=== PATIENT | female | born 1935 | race Caucasian/White ===

== ENCOUNTER 2023-07-12 14:11 | Emergency (ER) | payer MEDICARE, SELFPAY ==
[2023-07-12 14:18] VITALS: BP 141/89; PULSE 71; RESP 20; TEMP 36.6; O2SAT 97; BMI 21.6
[2023-07-12 14:37] LABS: Bilirubin Urine NEGATIVE (NEGATIVE); Blood Urine NEGATIVE (NEGATIVE); Clarity Urine CLEAR (CLEAR); Color Urine LT. YELLOW (YELLOW); Glucose Urine UA NEGATIVE (NEGATIVE); Ketones Urine NEGATIVE (NEGATIVE); Leukocyte Esterase Urine SMALL (NEGATIVE); Nitrite Urine NEGATIVE (NEGATIVE); Protein Urine NEGATIVE (NEG/TRACE)
[2023-07-12 14:47] LABS: Bacteria Urine TRACE #/HPF (NONE SEEN); Cast Seen? NONE SEEN #/LPF (NONE SEEN); Crystals Seen? None Seen #/HPF (None Seen); Mucus Urine TRACE (NONE SEEN); RBC Urine 0-2 #/HPF (0-2); Squamous Epithelial Cell Urine FEW #/LPF (NONE/RARE)
--- NOTE | 2023-07-12 15:19 | ED.FEMALEGU1 ---
Documented by User: LLUVIA Salazar 07/12/23 19:32 HPI - Female Genitourinary General Chief complaint: Urogenital-Female Stated complaint: UTI SYMPTOMS Time Seen by Provider: 07/12/23 14:19 Source: patient Mode of arrival: walk-in Limitations: no limitations History of Present Illness HPI Narrative: 88-year-old female presents for brown vaginal discharge that started 3 days ago. She states that she still has uterus and 1 ovary. She has a history of 2 C-sections. She has not been sexually active in a couple of years as she states that her has . She complains of urinary frequency. Daughter is with her who states that she did smell the discharge and a small black stool. She states that the discharge is also on her underwear. Denies bright red blood. Denies history of cancer. Denies fever, abd or back pain, dysuria, n/v/d Related Data Allergies Allergy/AdvReac Type Severity Reaction Status Date / Time theophylline Allergy Severe Difficulty Verified 07/12/23 14:18 Breathing Review of Systems ROS Status of ROS 10 or more systems reviewed and unremarkable except as noted in history and below [facility] Social History Smoking status: Former smoker Exam Narrative Exam Narrative: General: alert, no distress, talking in full an complete sentences skin: warm, dry, intact head: normocephalic, atraumatic eyes: EOMI nose: nares patent neck: supple, trachea midline respiratory: non-labored extremities: FROM x 4, strength +5/5 abd: soft, NT, no guarding or rigidity, no peritoneal signs, normal BS female: Digital exam performed per myself and Dr. Cr with no evidence of discharge, no CMT, normal external genitalia; jade HAYS at bedside as witness neuro: A&Ox3 psych: appropriate mood and affect, cooperative Constitutional Vital Signs, click to edit/add: Last Vital Signs Temp 97.6 F 07/12/23 19:31 Pulse 80 07/12/23 19:31 Resp 14 07/12/23 19:31 BP 169/94 H 07/12/23 19:31 Pulse Ox 98 07/12/23 19:31 O2 Del Method Room Air 07/12/23 19:31 Course Vital Signs Vital signs: Vital Signs Temperature 97.9 F 07/12/23 14:18 Pulse Rate 71 07/12/23 14:18 Respiratory Rate 20 07/12/23 14:18 Blood Pressure 141/89 07/12/23 14:18 Pulse Oximetry 97 07/12/23 14:18 Oxygen Delivery Method Room Air 07/12/23 14:18 Temperature 97.6 F 07/12/23 19:31 Pulse Rate 80 07/12/23 19:31 Respiratory Rate 14 07/12/23 19:31 Blood Pressure 169/94 H 07/12/23 19:31 Pulse Oximetry 98 07/12/23 19:31 Oxygen Delivery Method Room Air 07/12/23 19:31 MDM - Female Genitourinary MDM Narrative Medical decision making narrative: 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 Dr. Villela's office was consulted and discussed the case with Chaparrita Gomez PA-C and will obtain blood work and CT and pelvis with contrast. UA positive for leukocytes, WBCs, bacteria. No acute findings on final read of CT abdomen pelvis with contrast, but it does mention thickened endometrium and recommends pelvic ultrasound. Patient is getting upset and states that she wants to be discharged home and called with her ultrasound results. She is given Dr. Villela's contact and to call them tomorrow to set up an appointment. afebrile, not tachypneic, not tachycardic, tolerating p.o., not hypoxic, non toxic appearing and ambulating at baseline and hemodynamically stable to be d/c. answered all questions. pt in agreement with tx. educated when to return to ER. Lab Data Attestation: I reviewed the patient's lab results. Labs: Lab Results 07/12/23 07/12/23 Range/Units 14:00 14:28 WBC 6.4 (4.0-11.0) 10^3/uL RBC 4.25 (4.20-5.40) 10^6/uL Hgb 12.1 (12.0-16.0) g/dL Hct 37.3 (36.0-48.0) % MCV 87.8 (81.0-99.0) fL MCH 28.5 (26.7-34.0) pg MCHC 32.4 (29.9-35.2) g/dL RDW 13.3 (11.0-15.0) % Plt Count 248 (150-450) 10^3/uL MPV 8.6 L (9.5-13.5) fL Neut % (Auto) 52.1 (43.0-75.0) % Lymph % (Auto) 31.8 (20.5-60.0) % [place] % (Auto) 11.1 (1.7-12.0) % Eos % (Auto) 3.7 (0.9-7.0) % Baso % (Auto) 1.1 (0.2-2.0) % Neut # (Auto) 3.4 (1.4-6.5) 10^3/uL Lymph # (Auto) 2.0 (1.2-3.8) 10^3/uL [place] # (Auto) 0.7 (0.3-0.8) 10^3/uL Eos # (Auto) 0.2 (0.0-0.7) 10^3/uL Baso # (Auto) 0.1 (0.0-0.1) 10^3/uL Abs Immat Gran (auto) 0.01 (0.00-0.03) 10^3/uL Imm/Tot Granulo (auto) 0.2 (0.0-0.5) % Sodium 140 (136-145) mmol/L Potassium 4.1 (3.5-5.1) mmol/L Chloride 104 (98-107) mmol/L Carbon Dioxide 29.7 (21.0-32.0) mmol/L Anion Gap 10.4 BUN 20.0 H (7.0-18.0) mg/dL Creatinine 0.70 (0.55-1.02) mg/dL Est GFR ( Amer) >60 (>=60) Est GFR (Non-Af Amer) >60 (>=60) BUN/Creatinine Ratio 28.6 Glucose 78 (74-106) mg/dL Calcium 8.8 (8.5-10.1) mg/dL Total Bilirubin 0.5 (0.2-1.0) mg/dL AST 14 L (15-37) U/L ALT 19 (14-59) U/L Alkaline Phosphatase 66 (46-116) U/L Total Protein 6.9 (6.4-8.2) g/dL Albumin 3.4 (3.4-5.0) g/dL Globulin 3.5 g/dL Albumin/Globulin Ratio 1.0 Urine Color Lt. yellow (YELLOW) Urine Clarity Clear (CLEAR) Urine pH 6.0 (5.0-9.0) Ur Specific [place] 1.020 (1.005-1.025) Urine Protein Negative (NEG/TRACE) mg/dL Urine Glucose (UA) Negative (NEGATIVE) mg/dL Urine Ketones Negative (NEGATIVE) mg/dL Urine Occult Blood Negative (NEGATIVE) Urine Nitrite Negative (NEGATIVE) Urine Bilirubin Negative (NEGATIVE) Urine Urobilinogen 1.0 (0.2-1.0) EU/dL Ur Leukocyte Esterase Small A (NEGATIVE) Urine RBC 0-2 (0-2) #/HPF Urine WBC 2-5 A (NONE SEEN) #/HPF Ur Squamous Epith Cells Few A (NONE/RARE) #/LPF Urine Crystals None seen (None Seen) #/HPF Urine Bacteria Trace A (NONE SEEN) #/HPF Urine Casts None seen (NONE SEEN) #/LPF Urine Mucus Trace A (NONE SEEN) Imaging Data CT scan - abdomen: Attestation: I have reviewed the pertinent imaging results. Radiologist's impression: CT/CT abdomen pelvis w con IMPRESSION: 1. No acute intra-abdominal/pelvic findings. 2. Significant endometrial thickening. Recommend further evaluation with pelvic ultrasound. Discharge Plan Discharge Chief Complaint: Urogenital-Female Clinical Impression: Discharge of vagina Patient Disposition: Home, Self-Care Time of Disposition Decision: 19:31 Condition: Good Mode of Transportation: Private Vehicle Instructions: Vaginal Discharge (ED) Stand Alone Forms: Portal Instructions Referrals: Jeffrey Villela DO [Physician] - As soon as possible Physician,Non-Staff, [Primary Care Provider] - 1 week Documented by User: Cedrick Cr MD 07/12/23 19:35 HPI - Female Genitourinary General Chief complaint: Urogenital-Female Stated complaint: UTI SYMPTOMS Time Seen by Provider: 07/12/23 14:19 Related Data Allergies Allergy/AdvReac Type Severity Reaction Status Date / Time theophylline Allergy Severe Difficulty Verified 07/12/23 14:18 Breathing PFSH PFSH Social History Smoking status: Former smoker Exam Narrative Exam Narrative: General: alert, no distress, talking in full an complete sentences skin: warm, dry, intact head: normocephalic, atraumatic eyes: EOMI nose: nares patent neck: supple, trachea midline respiratory: non-labored extremities: FROM x 4, strength +5/5 abd: soft, NT, no guarding or rigidity, no peritoneal signs, normal BS female: Digital exam performed per myself Marina Segal and Dr. Cr with no evidence of discharge, stool, Cervix was not palpated by either genital or Dr. Cr. no CMT, normal external genitalia; jade RN at bedside as witness During the entire exam as well as daughter. Marina and Dr. Cr were at bedside the entire time as well. neuro: A&Ox3 psych: appropriate mood and affect, cooperative Constitutional Vital Signs, click to edit/add: Last Vital Signs Temp 97.6 F 07/12/23 19:31 Pulse 80 07/12/23 19:31 Resp 14 07/12/23 19:31 BP 169/94 H 07/12/23 19:31 Pulse Ox 98 07/12/23 19:31 O2 Del Method Room Air 07/12/23 19:31 Course Vital Signs Vital signs: Vital Signs Temperature 97.9 F 07/12/23 14:18 Pulse Rate 71 07/12/23 14:18 Respiratory Rate 20 07/12/23 14:18 Blood Pressure 141/89 07/12/23 14:18 Pulse Oximetry 97 07/12/23 14:18 Oxygen Delivery Method Room Air 07/12/23 14:18 Temperature 97.6 F 07/12/23 19:31 Pulse Rate 80 07/12/23 19:31 Respiratory Rate 14 07/12/23 19:31 Blood Pressure 169/94 H 07/12/23 19:31 Pulse Oximetry 98 07/12/23 19:31 Oxygen Delivery Method Room Air 07/12/23 19:31 MDM - Female Genitourinary MDM Narrative Medical decision making narrative: 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 Dr. Villela's office was consulted and discussed the case with Chaparrita Gomez PA-C and will obtain blood work and CT and pelvis with contrast. UA positive for leukocytes, WBCs, bacteria. No acute findings on final read of CT abdomen pelvis with contrast, but it does mention thickened endometrium and recommends pelvic ultrasound. Patient is getting upset and states that she wants to be discharged home and called with her ultrasound results. She is given Dr. Villela's contact and to call them tomorrow to set up an appointment. afebrile, not tachypneic, not tachycardic, tolerating p.o., not hypoxic, non toxic appearing and ambulating at baseline and hemodynamically stable to be d/c. answered all questions. pt in agreement with tx. educated when to return to ER. I, Dr Cr, have reviewed the above progress note and course of action in the ER; agree with the above. I have personally seen and evaluated this patient, gone over history and physical, and discussed disposition and treatment plan with the patient. Lab Data Labs: Lab Results 07/12/23 07/12/23 Range/Units 14:00 14:28 WBC 6.4 (4.0-11.0) 10^3/uL RBC 4.25 (4.20-5.40) 10^6/uL Hgb 12.1 (12.0-16.0) g/dL Hct 37.3 (36.0-48.0) % MCV 87.8 (81.0-99.0) fL MCH 28.5 (26.7-34.0) pg MCHC 32.4 (29.9-35.2) g/dL RDW 13.3 (11.0-15.0) % Plt Count 248 (150-450) 10^3/uL MPV 8.6 L (9.5-13.5) fL Neut % (Auto) 52.1 (43.0-75.0) % Lymph % (Auto) 31.8 (20.5-60.0) % [place] % (Auto) 11.1 (1.7-12.0) % Eos % (Auto) 3.7 (0.9-7.0) % Baso % (Auto) 1.1 (0.2-2.0) % Neut # (Auto) 3.4 (1.4-6.5) 10^3/uL Lymph # (Auto) 2.0 (1.2-3.8) 10^3/uL [place] # (Auto) 0.7 (0.3-0.8) 10^3/uL Eos # (Auto) 0.2 (0.0-0.7) 10^3/uL Baso # (Auto) 0.1 (0.0-0.1) 10^3/uL Abs Immat Gran (auto) 0.01 (0.00-0.03) 10^3/uL Imm/Tot Granulo (auto) 0.2 (0.0-0.5) % Sodium 140 (136-145) mmol/L Potassium 4.1 (3.5-5.1) mmol/L Chloride 104 (98-107) mmol/L Carbon Dioxide 29.7 (21.0-32.0) mmol/L Anion Gap 10.4 BUN 20.0 H (7.0-18.0) mg/dL Creatinine 0.70 (0.55-1.02) mg/dL Est GFR ( Amer) >60 (>=60) Est GFR (Non-Af Amer) >60 (>=60) BUN/Creatinine Ratio 28.6 Glucose 78 (74-106) mg/dL Calcium 8.8 (8.5-10.1) mg/dL Total Bilirubin 0.5 (0.2-1.0) mg/dL AST 14 L (15-37) U/L ALT 19 (14-59) U/L Alkaline Phosphatase 66 (46-116) U/L Total Protein 6.9 (6.4-8.2) g/dL Albumin 3.4 (3.4-5.0) g/dL Globulin 3.5 g/dL Albumin/Globulin Ratio 1.0 Urine Color Lt. yellow (YELLOW) Urine Clarity Clear (CLEAR) Urine pH 6.0 (5.0-9.0) Ur Specific [place] 1.020 (1.005-1.025) Urine Protein Negative (NEG/TRACE) mg/dL Urine Glucose (UA) Negative (NEGATIVE) mg/dL Urine Ketones Negative (NEGATIVE) mg/dL Urine Occult Blood Negative (NEGATIVE) Urine Nitrite Negative (NEGATIVE) Urine Bilirubin Negative (NEGATIVE) Urine Urobilinogen 1.0 (0.2-1.0) EU/dL Ur Leukocyte Esterase Small A (NEGATIVE) Urine RBC 0-2 (0-2) #/HPF Urine WBC 2-5 A (NONE SEEN) #/HPF Ur Squamous Epith Cells Few A (NONE/RARE) #/LPF Urine Crystals None seen (None Seen) #/HPF Urine Bacteria Trace A (NONE SEEN) #/HPF Urine Casts None seen (NONE SEEN) #/LPF Urine Mucus Trace A (NONE SEEN) Discharge Plan Discharge Chief Complaint: Urogenital-Female Clinical Impression: Discharge of vagina Patient Disposition: Home, Self-Care Time of Disposition Decision: 19:31 Condition: Good Mode of Transportation: Private Vehicle Instructions: Vaginal Discharge (ED) Stand Alone Forms: Portal Instructions Referrals: Jeffrey Villela DO [Physician] - As soon as possible Physician,Non-Staff, MD [Primary Care Provider] - 1 week
--- NOTE | 2023-07-12 15:43 | CT_ITS ---
[address] [address] Patient Name: TRINY FERRARI MRN: [id number] date: 1935 Sex: F Assigned Patient Location: ER Current Patient Location: ER Accession/Order Number: [id number] Exam Date: 07/12/2023 16:40 Report Date: 07/12/2023 18:08 At the request of: NATASHA BLACKWOOD Procedure: CT abdomen pelvis w con EXAM: CT abdomen pelvis w con HISTORY: pain COMPARISON: 05/11/2018. 07/02/2020 TECHNIQUE: CT of abdomen/pelvis with IV contrast. Dose reduction techniques were performed. FINDINGS: Honing Machine Set Up Operator Tool: No pertinent findings, which are not already discussed below. Tubes/lines/drains: None. CHEST: Lungs: Clear. Mediastinum: No cardiomegaly or significant pericardial effusion. ABDOMEN: Liver: Unremarkable. Gallbladder and Biliary Tree: Unremarkable. Spleen: Calcified granuloma. Pancreas: Prominent main pancreatic duct although technically not dilated. No discrete mass or atrophy. Adrenal Glands: Unremarkable. Kidneys, Ureters, Bladder: Subserosal left lower pole cortical hypodensity, likely benign cyst. No concerning renal lesions. No urolithiasis. No hydronephrosis or hydroureterosis. Unremarkable bladder. Gastrointestinal: Second portion duodenal diverticulum. Advanced diffuse colonic diverticulosis. No mural thickening or inflammatory changes. No dilated loops of small or large bowel. Normal appendix. No free fluid or free air. Reproductive organ(s): Significant endometrial thickening measuring 2.2 cm, increased from previous. Lymphatic: Unremarkable. Vessels: Advanced atherosclerosis. BONES AND SOFT TISSUE: Bones: No acute fracture. No concerning osseous lesions. Soft Tissue: Within normal limits. CT/CT abdomen pelvis w con IMPRESSION: 1. No acute intra-abdominal/pelvic findings. 2. Significant endometrial thickening. Recommend further evaluation with pelvic ultrasound. Electronically authenticated by: MURTAZA RAYA Date: 07/12/2023 18:08
--- NOTE | 2023-07-12 15:51 | PC.NURSE ---
Pt reports a thick brown vaginal discharge yesterday that per her daughter, smelled like stool. Pt states she has hardly any sense of smell. Dr Cr and LLUVIA Gray to bedside and did a digital exploration of vaginal canal but did not observe any discharge . Dr Tika griffith for consultation
[2023-07-12 16:07] LABS: Basophils Absolute Auto 0.1 10^3/uL (0.0-0.1); Basophils Percent Auto 1.1 % (0.2-2.0); Eosinophils Absolute Auto 0.2 10^3/uL (0.0-0.7); Eosinophils Percent Auto 3.7 % (0.9-7.0); Hematocrit 37.3 % (36.0-48.0); Hemoglobin 12.1 g/dL (12.0-16.0); Immature Granulocytes Abs Auto 0.01 10^3/uL (0.00-0.03); Immature Granulocytes Pct Auto 0.2 % (0.0-0.5); Lymphocytes Percent Auto 31.8 % (20.5-60.0); Mean Corpuscular HGB Conc 32.4 g/dL (29.9-35.2); Mean Corpuscular Hemoglobin 28.5 pg (26.7-34.0); Mean Corpuscular Volume 87.8 fL (81.0-99.0); Mean Platelet Volume 8.6 fL (9.5-13.5); Monocytes Absolute Auto 0.7 10^3/uL (0.3-0.8); Monocytes Percent Auto 11.1 % (1.7-12.0); Neutrophils Absolute Auto 3.4 10^3/uL (1.4-6.5); Neutrophils Percent Auto 52.1 % (43.0-75.0); Platelet Count 248 10^3/uL (150-450); Red Blood Count 4.25 10^6/uL (4.20-5.40); Red Cell Distribution Width 13.3 % (11.0-15.0); White Blood Count 6.4 10^3/uL (4.0-11.0)
[2023-07-12 16:26] LABS: Alanine Aminotransferase 19 U/L (14-59); Albumin Level 3.4 g/dL (3.4-5.0); Alkaline Phosphatase 66 U/L (46-116); Anion Gap 10.4; Aspartate Amino Transferase 14 U/L (15-37); BUN Creatinine Ratio 28.6; Bilirubin Total 0.5 mg/dL (0.2-1.0); Calcium 8.8 mg/dL (8.5-10.1); Carbon Dioxide 29.7 mmol/L (21.0-32.0); Chloride 104 mmol/L (98-107); Estimated GFR (African America >60 (>=60); Estimated GFR (Non-African Ame >60 (>=60); Globulin 3.5 g/dL; Glucose 78 mg/dL (74-106); Potassium 4.1 mmol/L (3.5-5.1); Sodium 140 mmol/L (136-145); Total Protein 6.9 g/dL (6.4-8.2)
--- NOTE | 2023-07-12 18:28 | US_ITS ---
The [address] [address] Patient Name: TRINY FERRARI MRN: [id number] date: 1935 Sex: F Assigned Patient Location: ER Current Patient Location: Accession/Order Number: [id number] Exam Date: 07/12/2023 18:30 Report Date: 07/12/2023 21:26 At the request of: NATASHA BLACKWOOD Procedure: US pelvis Delete that US pelvis HISTORY: abd CT, vaginal bleeding COMPARISONS: CT abdomen and pelvis from the same day. TECHNIQUE: Transabdominal imaging the pelvis was performed. FINDINGS: UTERUS: Normal in size and echogenicity. The uterus measures 6.4 x 2.8 x 2.7 cm. MYOMETRIUM:Unremarkable. ENDOMETRIUM: The endometrium is abnormally thickened measuring 1.5 cm. The endometrium is not optimally evaluated on this transabdominal scan. RIGHT OVARY: Not visualized. LEFT OVARY: Not visualized. OTHER:There is no significant free fluid in the pelvis. US/US pelvis IMPRESSION: The endometrium is abnormally thickened measuring 1.5 cm. Endometrium is not optimally evaluated on transabdominal scanning. Transvaginal imaging would be of benefit to better characterize the endometrial canal. Electronically authenticated by: DAVINA BRAVO Date: 07/12/2023 21:26
[2023-07-12 19:31] VITALS: BP 169/94; PULSE 80; RESP 14; TEMP 36.4; O2SAT 98
[2023-07-12 19:33] VITALS: BP 165/84; PULSE 82; RESP 16; TEMP 36.4; O2SAT 98
== END 2023-07-12 19:43 | disposition home or self-care (01) ==
PROVIDERS: Physician Assistant; Emergency Provider Emergency Medicine; Family Provider Family Medicine
DX: N89.8 Other specified noninflammatory disorders of vagina (principal); Z87.891 Personal history of nicotine dependence; R93.89 Abnormal findings on diagnostic imaging of other specified body structures
CPT/HCPCS: 36415; 74177; 76856; 80053; 81001; 85025; 99285; Q9967

== ENCOUNTER 2023-07-20 08:50 | Outpatient (OUT) | payer MEDICARE, SELFPAY ==
--- NOTE | 2023-07-20 08:51 | US_ITS ---
The [address] [address] Patient Name: TRINY FERRARI MRN: [id number] date: 1935 Sex: F Assigned Patient Location: US Current Patient Location: US Accession/Order Number: [id number] Exam Date: 07/20/2023 08:51 Report Date: 07/20/2023 10:34 At the request of: JAY LANDIN Procedure: US pelvis transvaginal EXAMINATION: US pelvis transvaginal HISTORY: THICKENED ENDOMETRIUM COMPARISON: 07/12/[address] exam FINDINGS: The uterus is normal in size, contour and echotexture, retroverted, retroflexed. Uterus measures 6.8 x 3.6 x 5.0 cm. No focal myometrial mass The endometrium is heterogeneous in echotexture and thickened measuring 1.7 cm The ovaries are not visualized No free fluid. US/US pelvis transvaginal IMPRESSION: Thickened heterogeneous endometrium for a postmenopausal patient. Histopathologic diagnosis is recommended Electronically authenticated by: QUINTEN KOWALSKI Date: 07/20/2023 10:34
== END 2023-07-20 08:51 | disposition home or self-care (01) ==
LOC: US 08:50
PROVIDERS: Family Provider Family Medicine; Visit Provider Obstetrics & Gynecology
DX: R93.89 Abnormal findings on diagnostic imaging of other specified body structures (principal)
CPT/HCPCS: 76830

== ENCOUNTER 2024-01-17 07:31 | Outpatient (OUT) | payer MEDICARE, SELFPAY ==
--- NOTE | 2024-01-17 | PCN_ITS ---
CARDIAC STRESS TEST Requesting Physician: Procedure Date: 01/17/2024 INDICATION: Dyspnea on exertion, preoperative evaluation. STRESS TEST INFORMATION: The patient was brought to the stress lab in the resting and fasting state. He was connected to the appropriate hemodynamic and electrocardiographic monitoring. Lexiscan 0.4 mg was infused intravenously. He was monitored for the standard duration and discharged in a stable state. 30.8 mCi of 99 Technetium Cardiolite was administered post stress. 9.5 mCi of 99 Technetium Cardiolite were administered prior to rest images. HEMODYNAMICS: Resting heart rate was 73 beats per minute, increasing to a maximum of 90 beats per minute. Resting blood pressure was 144/80, with a maximum of 168/86. The patient experienced chest discomfort after injection of Lexiscan that resolved within 2 minutes. ELECTROCARDIOGRAPHY: Rest EKG: Sinus rhythm, 69 beats per minute, inferolateral ST-T wave changes potentially related to left ventricular hypertrophy and re-polarization versus ischemia. Abnormal resting EKG. During infusion and recovery: No significant arrhythmias are seen. No significant ST-T wave changes are noted. FINAL IMPRESSIONS: 1. No EKG changes seen on Lexiscan Cardiolite stress test in a patient with an abnormal resting EKG 2. Nuclear images are to be read, interpreted, and reported in a separate dictation. TIERRA
--- NOTE | 2024-01-17 07:35 | NM_ITS ---
Patient Name: TRINY FERRARI MR#: [id number] : 1935 Exam Date: 01/17/2024 Ordering Doctor: DARREN VANG CNP RADIOLOGY REPORT PROCEDURE: NM JAZ PERF SPECT REST STR COMPARISON: None. INDICATIONS: DYSPNEA ON EXERTION, PRE-OP EVALUATION TECHNIQUE: Exam Description: Stress/Rest one day protocol gated SPECT Rest Imagin.5 mCi Tc-99m Cardiolite IV on 01/17/2024 Stress Imaging 30.8 mCi Tc-99m Cardiolite IV on 01/17/2024 Exercise Protocol: 0.4 mg Lexiscan given IV Heart Rate (bpm): Rest: 73 Max: 93 PMHR: 69 Blood Pressure: Rest: 144/80 Max: 168/86 Symptoms: chest pain Rest and peak stress ECG findings were normal and the exercise portion of the study was normal per attending physician Dr. Pittman . For more details please see separate cardiac stress test report. FINDINGS: QUALITY OF STUDY: Excellent. PERFUSION DEFECT: None. LOCATION: N/A SIZE: N/A. SEVERITY: N/A. TYPE: N/A. WALL MOTION: Normal. LV SIZE: Normal. 35 mL. TID / TCD: None; 1.2 LVEF: Normal. Calculated EF 93%. SUMMARY: Myocardial perfusion imaging study is NORMAL. CONCLUSION: 1. Normal nuclear medicine myocardial perfusion scan. Dictated by: Lencho Hilton M.D. on 01/18/2024 at 15:58 Approved by: Lencho Hilton M.D. on 01/18/2024 at 15:59
--- OUTSIDE RECORDS SUMMARY | 2024-01-17 07:55 | XMS_ITS | CCD ---
Author Organization [facility] Care Team Providers Care City Letter Carrier Name Role Phone DR ELVER TURNER Consulting Unavailable FABY, DR KULDIP Mcclellan Primary Care Unavailable SHAIKH HUBBARD Attending Unavailable SHAIKH HUBBARD Admitting Unavailable TATIANA, DR SRIKANTH Parada Consulting Unavailable NICKOLAS ANDERSEN, DR FANI Wilson Consulting Unavaillucas SHOOK, DR GUTIERREZ Consulting Unavailable ANNALISA RICHARDSON Consulting Unavailable AHALEX SOMMER Consulting Unavailable RICHSIMON Estrella Consulting Unavailable Angelica Sorenson Consulting Unavailable SHAIKH HUBBARD Consulting Unavailable FABY, DR KULDIP Mcclellan Consulting Unavailable NICKOLAS ANDERSEN, DR FANI Wilson Attending Stacy SWEET, DR KULDIP Mcclellan Primary Care Unavailable NICKOLAS ANDERSEN, DR FANI Wilson Admitting Unavaillucas SIMPSON, DR SRIKANTH Parada Consulting Unavailable NICKOLAS ANDERSEN, DR FANI Wilson Consulting UnavailDARREN Aguilar Attending Unavailable Kuldip Sweet DO Primary Care Provider Allergies Allergy Classification Reported Allergen(s) Allergy Type Date of Onset Reaction(s) Facility Theophylline (1 source) Theophylline Drug Allergy 02-16-2014 [facility] Repository (3 sources) Theophylline; Translations: [THEOPHYLLINE] Drug Allergy 09-09-2022 [facility] Repository (2 sources) HYLAN G-F 20 Drug Allergy 11-03-2022 [facility] Medications Current Medications Medication Drug Class(es) Dates Sig (Normalized) Sig (Original) acetaminophen 325 mg oral capsule (2 sources) take 1 capsule by mouth every six hours as needed acetaminophen (TylenoL) 325 mg capsule 1 capsule as needed Orally every 6 hrs 0 Active [id number] 200 actuat albuterol 0.09 mg/actuat metered dose inhaler (4 sources) beta2-Adrenergic Agonist Start: 06-15-2023 End: 12-06-2023 take 2 puff(s) by mouth every four hours albuterol (PROVENTIL HFA;VENTOLIN HFA) 90 mcg/actuation inhaler Indications: Moderate asthma without complication, unspecified whether persistent inhale 2 puffs by mouth every 4 hours if needed 18 g 0 12/06/2023 Active carvedilol 12.5 mg oral tablet (2 sources) alpha-Adrenergic Natalie, beta-Adrenergic Natalie Start: 06-15-2023 take 1 tablet by mouth twice daily carvediloL (COREG) 12.5 mg tablet Indications: Essential hypertension take 1 tablet by mouth twice a day 180 tablet 1 06/15/2023 Active 30 actuat fluticasone furoate 0.1 mg/actuat / umeclidinium 0.0625 mg/actuat / vilanterol 0.025 mg/actuat dry powder inhaler (2 sources) Anticholinergic, Corticosteroid, beta2-Adrenergic Agonist Start: 08-03-2023 take 1 puff(s) by inhalation once daily fluticasone-umeclid in-vilanter (TRELEGY ELLIPTA) 100-62.5-25 mcg blister with device Indications: Moderate asthma without complication, unspecified whether persistent Inhale 1 puff once daily. 1 each 5 08/03/2023 Active moexipril hydrochloride 15 mg oral tablet (2 sources) Start: 06-15-2023 take 1 tablet by mouth once daily moexipriL (UNIVASC) 15 mg tablet Indications: Essential hypertension take 1 tablet by mouth once daily 90 tablet 1 06/15/2023 Active montelukast 10 mg oral tablet (2 sources) Leukotriene Receptor Antagonist Start: 06-15-2023 take 1 tablet by mouth once daily montelukast (SINGULAIR) 10 mg tablet Indications: Moderate asthma without complication, unspecified whether persistent take 1 tablet by mouth once daily 90 tablet 2 06/15/2023 Active naproxen sodium 220 mg oral tablet (2 sources) Nonsteroidal Anti-inflammatory Drug take 1 tablet by mouth every twelve hours at mealtime as needed naproxen sodium (ALEVE) 220 mg tablet 1 tablet with food or milk as needed Orally every 12 hrs 0 Active Problems Active Problems Problem Classification Problem Date Documented Date Episodic/Chronic Anxiety disorders (1 source) Anxiety disorder, unspecified; Translations: [ANXIETY DISORDER UNSPECIFIED] Onset: 07-12-2020 Chronic Asthma (5 sources) Unspecified asthma, uncomplicated; Translations: [Moderate asthma] Onset: 07-12-2020 12-02-2023 Chronic Calculus of urinary tract (4 sources) Calculus of kidney; Translations: [CALCULUS OF KIDNEY] Onset: 03-13-2021 Episodic Disorders of lipid metabolism (3 sources) Pure hypercholesterolemia, unspecified; Translations: [Mixed hyperlipidemia] Onset: 07-12-2020 09-09-2022 Chronic Esophageal disorders (1 source) Gastro-esophageal reflux disease without esophagitis; Translations: [GERD WITHOUT ESOPHAGITIS] Onset: 07-12-2020 Chronic Essential hypertension (5 sources) Essential (primary) hypertension; Translations: [Essential hypertension] Onset: 07-12-2020 Chronic Nutritional deficiencies (2 sources) Vitamin D deficiency; Translations: [Vitamin D deficiency, unspecified] Onset: 09-09-2022 09-09-2022 Chronic Osteoarthritis (3 sources) Unspecified osteoarthritis, unspecified site; Translations: [Chronic osteoarthritis] Onset: 07-12-2020 09-09-2022 Chronic Osteoporosis (2 sources) Postmenopausal osteoporosis; Translations: [Age-related osteoporosis without current pathological fracture] Onset: 09-09-2022 09-09-2022 Chronic Other ear and sense organ disorders (1 source) Unspecified hearing loss, unspecified ear; Translations: [UNS HEARING LOSS UNSPECIFIED EAR] Onset: 07-12-2020 Chronic Other lower respiratory disease (2 sources) Other forms of dyspnea; Translations: [Other forms of dyspnea] Onset: 08-18-2023 Episodic Past or Other Problems Problem Classification Problem Date Documented Date Episodic/Chronic Abdominal pain (3 sources) Unspecified abdominal pain; Translations: [UNSPECIFIED ABDOMINAL PAIN] Onset: 07-03-2020 Episodic Immunizations and screening for infectious disease (1 source) Contact with and (suspected) exposure to other viral communicable diseases; Translations: [CONTCT EXPS OTH VIRL COMMUNICABL DZ] Onset: 07-12-2020 Episodic Mood disorders (2 sources) Mood disorders Onset: 08-03-2023 08-03-2023 Nutritional deficiencies (2 sources) Cobalamin deficiency; Translations: [Deficiency of other specified B group vitamins] Onset: 09-09-2022 09-09-2022 Episodic Other aftercare (1 source) Other supervisor intermediates (current) drug therapy; Translations: [OTH [employer]FT [employer] SPECIALIST CURRENT DRUG THERAPY] Onset: 07-12-2020 Episodic Other lower respiratory disease (1 source) Hypoxemia; Translations: [HYPOXEMIA] Onset: 07-12-2020 Episodic Residual codes; unclassified (2 sources) Noncompliance with treatment; Translations: [Noncompliance] Onset: 06-15-2023 06-15-2023 Episodic Screening and history of mental health and substance abuse codes (1 source) Personal history of nicotine dependence; Translations: [PERSONAL HISTORY OF NICOTINE DEPEND] Onset: 07-12-2020 Episodic Urinary tract infections (1 source) Pyonephrosis; Translations: [PYONEPHROSIS] Onset: 07-12-2020 Episodic Results Test Name Value Interpretation Reference Range Facility 37on 08-18-2023 37 *Monitor your blood pressure at home. Goal blood pressure is 120-130/80. *We will switch carvedilol to nebivolol. *Have your stress test done. Normal [facility] Office Visiton 08-18-2023 Follow-up visit [id number] Iliana Gasca 1935 F Date Provider Department Center 08/18/2023 [facility] Family History Problem Relation Age of Onset Heart failure Mother Hypertension Daughter Diabetes Daughter Family Status - Relation Status Age at Mother Daughter Other Level of Service:03466 MA OFFICE/OUTPATIENT NEW MODERATE MDM 45-59 MINUTES Reason for Visit and Comments: New Patient [632] Pre-op Exam [[id number]] Normal [facility] COMPREHENSIVE METABOLIC PANE [place] 03-07-2022 Albumin [Mass/Vol] 4.1 g/dL Normal 3.6-5.1 [facility] Comment on above: Performed By: #### 7 600, 01149, 92456 #### [facility] [address], [address] [place] [id number] Workshop Manager: Tucker Lobato MD Albumin/Globulin [Mass ratio] 1.6 {ratio} Normal 1.0-2.5 [facility] Comment on above: Performed By: #### 7 600, 70718, 46458 #### [facility] [address], [address] [place] [address] Workshop Manager: Tucker Lobato MD ALP [Catalytic activity/Vol] 73 U/L Normal 37-153 [facility] Comment on above: Performed By: #### 7 600, 66290, 40425 #### [facility] [place] [address] Workshop Manager: Tucker Lobato MD ALT [Catalytic activity/Vol] 14 U/L Normal 6-29 [facility] Comment on above: Performed By: #### 7 600, 50229, 67239 #### [facility] [place] [address] Workshop Manager: Tucker Lobato MD AST [Catalytic activity/Vol] 14 U/L Normal 10-35 [facility] Comment on above: Performed By: #### 7 600, 16470, 81625 #### [facility] [place] [address] Workshop Manager: Tucker Lobato MD Bilirubin [Mass/Vol] 0.4 mg/dL Normal 0.2-1.2 [facility] Comment on above: Performed By: #### 7 600, 40332, 75625 #### [facility] [place] [address] Workshop Manager: Tucker Lobato MD BUN/CREATININE RATIO NOT APPLICABLE Normal 6-22 [facility] Comment on above: Performed By: #### 7 600, 28581, 32325 #### [facility] [place] [address] Workshop Manager: Tucker Lobato MD Calcium [Mass/Vol] 9.2 mg/dL Normal 8.6-10.4 [facility] Comment on above: Performed By: #### 7 600, 48544, 83739 #### [facility] [place] [address] Workshop Manager: Tucker Lobato MD Chloride [Moles/Vol] 104 mmol/L Normal 98-110 [facility] Comment on above: Performed By: #### 7 600, 49464, 63753 #### [facility] [address], [address] [place] [address] Workshop Manager: Tucker Lobato MD CO2 [Moles/Vol] 31 mmol/L Normal 20-32 [facility] Comment on above: Performed By: #### 7 600, 31398, 98503 #### [facility] [place] [address] Workshop Manager: Tucker Lobato MD Creatinine [Mass/Vol] 0.71 mg/dL Normal 0.60-0.88 [facility] Comment on above: Result Comment: For patients >49 years of age, the reference limit for Creatinine is approximately 13% higher for people identified as -[place]. Performed By: #### 7 600, 70117, 80133 #### [facility] [address], [address] [place] [address] Workshop Manager: Tucker Lobato MD eGFR NON-AFR. LAO 78 mL/min/1.73m2 Normal > OR = 60 [facility] Comment on above: Performed By: #### 7 600, 95035, 90192 #### [facility] [place] [address] Workshop Manager: Tucker Lobato MD GFR/1.73 sq M.predicted among blacks MDRD (S/P/Bld) [Vol rate/Area] 91 mL/min/{1.73_m2} Normal > OR = 60 [facility] Comment on above: Performed By: #### 7 600, 25866, 84893 #### [facility] [address], [address] [place] [address] Workshop Manager: Tucker Lobato MD Globulin (S) [Mass/Vol] 2.6 g/dL Normal 1.9-3.7 [facility] Comment on above: Performed By: #### 7 600, 04713, 43930 #### [facility] [place] [address] Workshop Manager: Tucker Lobato MD Glucose [Mass/Vol] 105 mg/dL High 65-99 [facility] Comment on above: Result Comment: Fasting reference interval For someone without known diabetes, a glucose value between 100 and 125 mg/dL is consistent with prediabetes and should be confirmed with a follow-up test. Performed By: #### 7 600, 70057, 85752 #### [facility] [address], [address] [place] [address] Workshop Manager: Tucker Lobato MD Potassium [Moles/Vol] 4.4 mmol/L Normal 3.5-5.3 [facility] Comment on above: Performed By: #### 7 600, 23709, 40619 #### [facility] [place] [address] Workshop Manager: Tucker Lobato MD Protein [Mass/Vol] 6.7 g/dL Normal 6.1-8.1 [facility] Comment on above: Performed By: #### 7 600, 79472, 00350 #### [facility] [place] [address] Workshop Manager: Tucker Lobato MD Sodium [Moles/Vol] 141 mmol/L Normal 135-146 [facility] Comment on above: Performed By: #### 7 600, 96660, 78839 #### [facility] [place] [address] Workshop Manager: Tucker Lobato MD Urea nitrogen [Mass/Vol] 17 mg/dL Normal 7-25 [facility] Comment on above: Performed By: #### 7 600, 04540, 36546 #### [facility] [place] [address] Workshop Manager: Tucker Lobato MD LIPID PANEL, [facility] 02-12 Cholesterol [Mass/Vol] 181 mg/dL Normal <200 [facility] Comment on above: Order Comment: FASTI NG:YES FASTING: YES Performed By: #### 7 600, 10657, 67499 #### [facility] [place] [address] Workshop Manager: Tucker Lobato MD Cholesterol in HDL [Mass/Vol] 46 mg/dL Low > OR = 50 [facility] Comment on above: Order Comment: FASTI NG:YES FASTING: YES Performed By: #### 7 600, 90805, 99979 #### [facility] [address], [address] [place] [address] Workshop Manager: Tucker Lobato MD Cholesterol in LDL [Mass/Vol] 105 mg/dL High [facility] Comment on above: Order Comment: FASTI NG:YES FASTING: YES Result Comment: Refe rence range: <100 Desirable range <100 mg/dL for primary prevention; <70 mg/dL for patients with CHD or diabetic patients with > or = 2 CHD risk factors. LDL-C is now calculated using the Nabil calculation, which is a validated novel method providing better accuracy than the Friedewald equation in the estimation of LDL-C. Emil ADKINS et al. PATTIE. 2013;310(19): 3249-2739 (http://education.eCaring.StackMob/faq/QUK934) Performed By: #### 7 600, 38938, 20725 #### [facility] [address], [address] [place] [address] Workshop Manager: Tucker Lboato MD Cholesterol.total/Ch olesterol in HDL [Mass ratio] 3.9 {ratio} Normal <5.0 [facility] Comment on above: Order Comment: FASTI NG:YES FASTING: YES Performed By: #### 7 600, 57065, 29155 #### [facility] [address], [address] [place] [address] Workshop Manager: Tucker Lobato MD NON HDL CHOLESTEROL 135 mg/dL (calc) High <130 [facility] Comment on above: Order Comment: FASTI NG:YES FASTING: YES Result Comment: For patients with diabetes plus 1 major ASCVD risk factor, treating to a non-HDL-C goal of <100 mg/dL (LDL-C of <70 mg/dL) is considered a therapeutic option. Performed By: #### 7 600, 84218, 76980 #### [facility] [address], [address] [place] [address] Workshop Manager: Tucker Lobato MD Triglyceride [Mass/Vol] 186 mg/dL High <150 [facility] Comment on above: Order Comment: FASTI NG:YES FASTING: YES Performed By: #### 7 600, 43905, 75463 #### [facility] [address], [address] [place], [place] [id number] Workshop Manager: Tucker Lobato MD VITAMIN D,25-OH,TOTAL,IAon 0 03-07-2022 VITAMIN D,25-OH,TOTAL,IA 27 ng/mL Low 30-100 [facility] Comment on above: Result Comment: Karma min D Status 25-OH Vitamin D: Deficiency: <20 ng/mL Insufficiency: 20 - 29 ng/mL Optimal: > or = 30 ng/mL For 25-OH Vitamin D testing on patients on D2-supplementation and patients for whom quantitation of D2 and D3 fractions is required, the QuestAssureD(TM) 25-OH VIT D, (D2,D3), LC/MS/MS is recommended: order code 81507 (patients >2yrs). See Note 1 Note 1 For additional information, please refer to http://education.eCaring.StackMob/faq/OQN268 (This link is being provided for informational/ educational purposes only.) Performed By: #### 7 600, 03353, 60166 #### [facility] [address], [address] [place], [place] [id number] Workshop Manager: Tucker Lobato MD [facility] RAD - MIS [phone] [id number] 38#1.00CD:127 Normal [facility] XR KUB 1 VIEWon 03-14-2021 XR KUB 1 VIEW EXAMINATION: XR KUB 1 VIEW HISTORY: Kidney stone COMPARISON: No relevant comparison available. FINDINGS: KIDNEY/URETER - RIGHT: No visible renal or ureteral calcifications. KIDNEY/URETER - LEFT: A few small densities project within the left kidney favoring kidney stones. PELVIS: No visible ureteral stones. BOWEL: No abnormal dilation or deviation. BONES: No acute abnormality. OTHER: Negative. No abnormal gaseous collections. IMPRESSION: 1. Suspect left nephrolithiasis. 2. Examination is limited by large amount of dense overlying bowel content. Electronically authenticated by: SRIKANTH SIMPSON Date: 2021-03-14 08:49 Normal [facility] Consent for Procedure/Surger yon 08-13-2020 Consent for Procedure/Surgery [id number] 43#[id number]:127 Normal [facility] Ambulatory Clinical Summaryo n 08-12-2020 Ambulatory Clinical Summary {[id number] Normal [facility] Patient Educationon 08-12-20 20 Patient Education Family Medicine Kidney Stones Kidney stones (ureteral lithiasis ) are solid masses that form inside your kidneys. The intense pain is caused by the stone moving through the kidney, ureter, bladder, and urethra (urinary tract ). When the stone moves, the ureter starts to spasm around the stone. The stone is usually passed in the urine. HOME CARE ? Drink enough fluids to keep your pee (urine ) clear or pale yellow. This helps to get the stone out. ? Strain all pee through the provided strainer. Do not pee without peeing through the strainer, not even once. If you pee the stone out, catch it. The stone may be as small as a grain of salt. Take this to your doctor. ? Only take medicine as told by your doctor. ? Follow up with your doctor as told. ? Get follow-up X-rays as told by your doctor. GET HELP RIGHT AWAY IF: ? Your pain does not get better with medicine. ? You have a fever. ? Your pain increases and gets worse over 18 hours. ? You have new belly (abdominal ) pain. ? You feel faint or pass out. MAKE SURE YOU: ? Understand these instructions. ? Will watch your condition. ? Will get help right away if you are not doing well or get worse. Document Released: 02/15/2009 Document Revised: 11/21/2012 Document Reviewed: 06/27/2010 ExitCare? Patient Information ?2013 eInstruction by [employer]. Normal [facility] Urology Office/Clinic Noteon 08-12-2020 Urology Office/Clinic Note Chief Complaint Cysto/Rt. stent removal HPI Staff Scope #1 ABX started. History of Present Illness Pt is here for Cysto/Rt Stent Removal. Physical Exam Vitals & Measurements HT: 150 cm HT: 150.0 cm WT: 49.3 kg WT: 49.3 kg BMI: 21.91 Procedure Operative Information Anesthesia Type: Local Procedure: Local Cystoscopy with Stent Removal Complications: None Surgical risks, benefits, details of the procedure have been explained to the patient. Full informed consent has been obtained. Intraoperative Information Prepped: Patient is placed in modified dorso/lithotomy position. The patient was prepped with the Betadine solution. Anesthesia: 2% Xylocaine Jelly per urethra. Procedure: Cystoscopy and right stent removal. The flexible Cystoscope was passed in retrograde fashion into the bladder without difficulty. The bladder was viewed in entirety and found to be without tumors or stones. Mild inflammation was seen surrounding the orifice with the stent seen protruding from it. The stent was then grasped and removed in its entirety. Specimens Removed: None Postoperative Information The patient tolerated the procedure well and was subsequently discharged home. Assessment/Plan Will return for follow up in 6 months w/KUB. Patient's been instructed to contact office if she has any problems after the procedure or between now and her next visit. She will take her second antibiotic tablet later today. 1. Foreign body in bladder (T19.1XXA: Foreign body in bladder, initial encounter) The patient is here for cystoscopy and ureteral stent removal. The stent has been removed in its entirety and the cystoscopy was uneventful. The procedure was well tolerated without complications. 2. Ureteral stone (N20.1: Calculus of ureter) S/P Cysto/LRt RG/Stone extraction. Follow-up With When Contact Information Nickolas Do MD, Fani Wilson In 6 months [phone] Additional Instructions: w/KUB Patient Education Kidney Stones, Gvao-ep-Xvvo Radha Mccoy, personally scribed for Dr. Olmos on 08/12/2020 13:56:00. . Documentation recorded by the scribeRadha accurately reflects the services(s) I performed and decisions made by me. Authenticated by Dr. Olmos on 08/12/2020 13:58:03. Problem List/Past Medical History Ongoing Anticoagulant long-term use Ex-cigarette smoker Foreign body in bladder Hyperlipemia Stress incontinence Historical Altered urinary elimination pattern due to calculus of kidney Procedure/Surgical History Cystoscopic removal of ureteric stent (08/12/2020), Cystoscope (07/03/2020), Bilateral tubal ligation, section, Colonoscopy, Cystoscopy. Medications carvedilol 12.5 mg Tab, 12.5 mg= 1 tab(s), Oral, Daily moexipril 15 mg Tab, 15 mg= 1 tab(s), Oral, Daily montelukast 10 mg Tab, 10 mg= 1 tab(s), Oral, Daily Ventolin HFA 90 mcg/inh Aerosol, 2 puff(s), Inhalation, QID, PRN Vitamin B-12 1000 mcg oral tablet, 1000 mcg= 1 tab(s), Oral, Daily Vitamin D 50,000 intl units (1.25 mg) oral capsule, 60462 International_Unit= 1 cap(s), Oral, Daily Allergies theophylline (Tachycardia) Dextrose 5% and Water (uknown) Social History Alcohol - Denies Alcohol Use, 12/23/2018 Substance Abuse - Denies Substance Abuse, 12/23/2018 Tobacco - Denies Tobacco Use, 12/23/2018 Never (less than 100 in lifetime) Tobacco Use:. Never Smokeless Tobacco Use:., 08/12/2020 Immunizations Vaccine Date Status Comments influenza virus vaccine, live, trivalent - Not Given Patient Refuses Diagnostic Results Review of operative note showed a foreign body removed from the right ureter. Pathology report revealed calcified none magnetic wire. Normal [facility] Comment on above: Result Comment: Elec tronically Signed By: Nickolas Do MD, Fani Wilson\.br\Date and Time Signed: 08/12/20 14:03 EST\.br\Electronically Co-Signed By: Radha Lang\.br\Date and Time Co-Signed: 08/12/20 13:56 EST Ambulatory Clinical Summaryo n 07-25-2020 Ambulatory Clinical Summary {[id number] [facility] Patient Educationon 07-25-20 20 Patient Education Family Medicine Hematuria, Adult Hematuria (blood in your urine) can be caused by a bladder infection (cystitis ), kidney infection (pyelonephritis ), prostate infection (prostatitis ), or kidney stone. Infections will usually respond to antibiotics (medications which kill germs), and a kidney stone will usually pass through your urine without further treatment. If you were put on antibiotics, take all the medicine until gone. You may feel better in a few days, but take all of your medicine or the infection may not respond and become more difficult to treat. If antibiotics were not given, an infection did not cause the blood in the urine. A further work up to find out the reason may be needed. HOME CARE INSTRUCTIONS ? Drink lots of fluid, 3 to 4 quarts a day. If you have been diagnosed with an infection, cranberry juice is especially recommended, in addition to large amounts of water. ? Avoid caffeine, tea, and carbonated beverages, because they tend to irritate the bladder. ? Avoid alcohol as it may irritate the prostate. ? Only take [id number]-[id number] or prescription medicines for pain, discomfort, or fever as directed by your caregiver. ? If you have been diagnosed with a kidney stone follow your caregivers instructions regarding straining your urine to catch the stone. TO PREVENT FURTHER INFECTIONS: ? Empty the bladder often. Avoid holding urine for long periods of time. ? After a bowel movement, women should cleanse front to back. Use each tissue only once. ? Empty the bladder before and after sexual intercourse if you are a female. ? Return to your caregiver if you develop back pain, fever, nausea (feeling sick to your stomach), vomiting, or your symptoms (problems) are not better in 3 days. Return sooner if you are getting worse. If you have been requested to return for further testing make sure to keep your appointments. If an infection is not the cause of blood in your urine, X-rays may be required. Your caregiver will discuss this with you. SEEK IMMEDIATE MEDICAL CARE IF: ? You have a persistent fever over 102? F (38.9? C). ? You develop severe vomiting and are unable to keep the medication down. ? You develop severe back or abdominal pain despite taking your medications. ? You begin passing a large amount of blood or clots in your urine. ? You feel extremely weak or faint, or pass out. MAKE SURE YOU: ? Understand these instructions. ? Will watch your condition. ? Will get help right away if you are not doing well or get worse. Document Released: 08/30/2006 Document Revised: 11/21/2012 Document Reviewed: 04/18/2009 ExitCare? Patient Information ?2013 eInstruction by [employer]. Enedelia [facility] Urology Office/Clinic Noteon 07-25-2020 Urology Office/Clinic Note Chief Complaint Pt is here for Flaco follow up This patient is an 85-year-old female with a history of a right hydronephrosis and a right distal ureteral calculus foreign body that was removed endoscopically on 07/03/2020. The foreign body was apparently a wire that had calcified. It was removed endoscopically and a ureteral stent was placed. At this point the patient is being scheduled for removal of the ureteral stent. HPI Staff Pt is here for Cystoscopy w insertion of ureteral stent, retrograde pyelogram, removal of foreign body follow up done on 07/03/2020. Previous dx kidney stone and Stress incontinence. Pain with urination:Pt denies pain or burning Blood in urine:Pt denies Incomplete bladder emptying:Pt denies Frequency:Pt denies Urgency:Pt states occasionally Nocturia:Pt states 1 time Hesitancy:Pt denies Urination requires straining:Pt denies Stream:Pt denies Stream starts and stops:Pt denies Leaking before getting to the restroom:Pt states occasionally Urinary incontinence without sensory awareness:Pt denies Temporarily unable to restrain urination with body movement:Pt states occasionally Wearing pad/Depends:Yes Pt states 2 times Urine odor:Pt denies Flank/Back pain:Pt denies Abdominal pain:Pt states occasionally History of Present Illness reviewed pathology report. Reviewed ER report. There have been no associated fever, chills, flank pain or blood in the urine. Pt is not having any burning. Review of Systems ROS - Provider Constitutional: denies weight loss, denies hot flashes. Eyes: denies eye problems. Gastrointestinal: denies nausea, denies vomiting. Cardiovascular: denies chest pain or angina. Integumentary: no dryness Musculoskeletal: denies musculoskeletal symptoms. ENMT: denies otolaryngeal symptoms. Respiratory: no shortness of breath. Heme/Lymph: denies easy bleeding tendency, denies easy bruising tendency. Psychiatric: no confusion, no anxiety. Genitourinary: denies vaginal discharge, denies incontinence, denies dysuria, denies hematuria, denies urinary frequency, denies amenorrhea, denies menorrhagia, denies abnormal bleeding, denies pelvic pain, denies genital sores, and denies decreased libido. Physical Exam Vitals & Measurements HR: 73(Peripheral) RR: 16 BP: 162/70 HT: 150 cm HT: 150.0 cm WT: 49.3 kg WT: 49.3 kg BMI: 21.91 General Appearance: alert , no acute distress, well nourished, well developed female. Head: normocephalic . Eyes: normal orbit and globe. ENMT: normal examination of external ears. Chest: Lungs CTA, respirations non labored . Cardiovascular: regular rate and rhythm. Abdomen: soft, non distended, no tenderness, no mass or organomegaly, no hernia. Genitourinary: bladder nonpalpable, no flank tenderness. Lymph Nodes: unremarkable palpation of the cervical area. Skin: warm, dry, no bruising. Psychiatric: cooperative, affect appropriate for age, normal judgement, euthymic mood. Assessment/Plan This patient is a right ureteral stent in place and is being scheduled for cystoscopy with stent extraction, risk, alternatives and potential complications have been discussed. Informed consent has been obtained. 1. Hematuria (R31.9: Hematuria, unspecified) UA today shows Moderate amount in sample today, due to stent. Ordered: Urnls Dip Stick Auto w/o Microscopy POC 30407 Urology Procedure Order 2. Foreign body in bladder (T19.1XXA: Foreign body in bladder, initial encounter) The risks and benefits for cystoscopy with right stent removal. have been discussed. The risks include bleeding, infection, and irritation of the bladder and urinary channel, among others. The patient, after being informed of procedural details and after questions have been answered, wishes to proceed. Full informed consent has been obtained. Will order Local anesthesia. ABX will be sent. Ordered: Urology Procedure Order 3. Ex-cigarette smoker (Z87.891: Personal history of nicotine dependence) Continue smoking cessation Ordered: Urology Procedure Order Orders: ciprofloxacin, 500 mg = 1 tab(s), Oral, Daily, Take 1 tab prior to Cysto and 1 day of, after Cysto has been completed, X 2 day(s), # 2 tab(s), Refills(s) 0, Pharmacy: [facility] 150, cm, 07/25/20 11:16:00 EST, Height/Length Dosing, 49.3, kg, 07/25/20 1... I have reviewed the previous health record information and history for this patient from Dr. Olmos Follow-up With When Contact Information Nickolas Do MD, F[facility] [address] [place] [address]- Additional Instructions: Patient Education Hematuria, Adult I, Kathy Kate, personally scribed for Dr. Olmos on 07/25/2020 11:46:24. . Documentation recorded by the scribe, Kathy Kate, accurately reflects the services(s) I performed and decisions made by me. Authenticated by Dr. Olmos on 07/25/2020 12:16:05. Problem Li (more content not included)... Normal [facility] Comment on above: Result Comment: Elec tronically Signed By: Nickolas Do MD, Fani Wilson\.br\Date and Time Signed: 07/25/20 12:16 EST\.br\Electronically Co-Signed By: Kathy Kate MA\.br\Date and Time Co-Signed: 07/25/20 11:47 EST Pathology Noteon 07-11-2020 Pathology Note [id number] DD#1.00CD:127 Normal [facility] RAD - MISCon 07-11-2020 RAD - MISC [id number] 82#1.00CD:127 Normal [facility] ECG 12-Leadon 07-08-2020 ECG 12-Lead [id number] 4C#1.00CD:127 [facility] RAD - CT Reporton 07-08-2020 RAD - CT Report [id number] 8C#1.00CD:127 Normal [facility] RAD - MISCon 07-08-2020 RAD - MISC [id number] CC#1.00CD:127 Normal [facility] CBC AUTO DIFFon 07-04-2020 BASO # 0.0 103/ul Normal 0.0-0.1 [facility] Comment on above: Performed By: #### C BC #### [facility] [address] [id number] Nadege Viviane Basophils/100 WBC (Bld) 0.1 % Critically low 0.2-2.0 [facility] Comment on above: Performed By: #### C BC #### [facility] [address] [place] [address] Nadege Viviane EO # 0.0 103/ul Normal 0.0-0.7 [facility] Comment on above: Performed By: #### C BC #### [facility] [address] [place] [address] Nadege Viviane Eosinophils/100 WBC (Bld) 0.0 % Critically low 0.9-7.0 [facility] Comment on above: Performed By: #### C BC #### [facility] [address] [place] [address] Nadege Viviane Erythrocyte distribution width (RBC) [Ratio] 14.2 % Normal 11.0-15.0 [facility] Comment on above: Performed By: #### C BC #### [facility] [address] [place], [place] [id number] Nadege Viviane Hematocrit (Bld) [Volume fraction] 34.1 % Critically low 36.0-48.0 [facility] Comment on above: Performed By: #### C BC #### [facility] [address] [place], [place] [address] Nadege Viviane Hemoglobin (Bld) [Mass/Vol] 10.7 g/dL Critically low 12.0-16.0 [facility] Comment on above: Result Comment: NIDIA ENT HAS IV IS BEING DISCHARGED PER NURSE Performed By: #### C BC #### [facility] [address] [place] [address] Nadegetomy Pan IG # 0.15 10e3/ul Critically high 0.00-0.03 [facility] Comment on above: Performed By: #### C BC #### [facility] [address] [place] [address] Nadegetomy Pan IG % 0.9 % Critically high 0.0-0.5 [facility] Comment on above: Performed By: #### C BC #### [facility] [address] [place] [address] Nadege Viviane LYMPH # 1.7 103/ul Normal 1.2-3.8 [facility] Comment on above: Performed By: #### C BC #### [facility] [address] [place] [address] Nadege Pan Lymphocytes/100 WBC (Bld) 9.9 % Critically low 20.5-60.0 [facility] Comment on above: Performed By: #### C BC #### [facility] [address] [place] [address] Nadege Pan MANUAL DIFF REQ NO Normal [facility] Comment on above: Performed By: #### C BC #### [facility] [address] [place] [address] Nadege Pan MCH (RBC) [Entitic mass] 29.0 pg Normal 26.7-34.0 [facility] Comment on above: Performed By: #### C BC #### [facility] [address] [place] [address] Nadege Pan MCHC (RBC) [Mass/Vol] 31.4 g/dL Normal 29.9-35.2 [facility] Comment on above: Performed By: #### C BC #### [facility] [address] [place] [address] Nadegetomy Pan MCV (RBC) [Entitic vol] 92.4 fL Normal 81.0-99.0 [facility] Comment on above: Performed By: #### C BC #### [facility] [address] [place] [address] Nadege Viviane MONO # 0.9 103/ul Critically high 0.3-0.8 [facility] Comment on above: Performed By: #### C BC #### [facility] [address] [place], [place] [address] Nadege Pan Monocytes/100 WBC (Bld) 5.3 % Normal 1.7-12.0 [facility] Comment on above: Performed By: #### C BC #### [facility] [address] [place], [place] [address] Nadege Pan NEUT # 14.2 103/ul Critically high 1.4-6.5 [facility] Comment on above: Performed By: #### C BC #### [facility] [address] [place], [place] [address] Nadege Pan Neutrophils/100 WBC (Bld) 83.8 % Critically high 43.0-75.0 [facility] Comment on above: Performed By: #### C BC #### [facility] [address] [place], [place] [address] Nadege Pan Platelet mean volume (Bld) [Entitic vol] 9.2 fL Critically low 9.5-13.5 [facility] Comment on above: Performed By: #### C BC #### [facility] [address] [place], [place] [address] Nadege Pan PLT 221 103/ul Normal 150-450 [facility] Comment on above: Performed By: #### C BC #### [facility] [address] [place], [place] [address] Nadege Pan RBC 3.69 106/ul Critically low 4.20-5.40 [facility] Comment on above: Performed By: #### C BC #### [facility] [address] [place], [place] [address] Nadege Pan WBC 16.9 103/ul Critically high 4.0-11.0 [facility] Comment on above: Performed By: #### C BC #### [facility] [address] [place], [place] [address] Nadege Pan Operative Reporton 0 Operative Report [id number] 30#1.00CD:127 Normal [facility] PROF CHEM 8 (BAS METB)on Anion gap [Moles/Vol] 12.2 mmol/L Normal [facility] Comment on above: Performed By: #### B MP #### [facility] [address] [id number] Nadege Viviane Calcium [Mass/Vol] 8.4 mg/dL Normal 8.4-10.2 [facility] Comment on above: Performed By: #### B MP #### [facility] [address] [address] Nadege Viviane Chloride [Moles/Vol] 106 mmol/L Normal 98-107 [facility] Comment on above: Performed By: #### B MP #### [facility] [address] [address] Nadege Viviane CO2 [Moles/Vol] 27.7 mmol/L Normal 22.0-30.0 [facility] Comment on above: Performed By: #### B MP #### [facility] [address] [address] Nadege Viviane Creatinine [Mass/Vol] 0.91 mg/dL Normal 0.52-1.04 [facility] Comment on above: Performed By: #### B MP #### [facility] [address] [id number] Nadege Viviane EGFR-AF LAO >60 Normal >=60 [facility] Comment on above: Performed By: #### B MP #### [facility] [address] [address] N[place]ge Viviane EGFR-NON AF LAO 59 mL/min/1.73m2 Critically low >=60 [facility] Comment on above: Performed By: #### B MP #### [facility] [address] [id number] Nadege Viviane Glucose [Mass/Vol] 142 mg/dL Critically high 74-106 [facility] Comment on above: Performed By: #### B MP #### [facility] [address] [id number] Nadege Viviane Potassium [Moles/Vol] 3.9 mmol/L Normal 3.4-5.0 [facility] Comment on above: Performed By: #### B MP #### [facility] [address] [place], [place] [address] Nadege Pan Sodium [Moles/Vol] 142 mmol/L Normal 137-145 [facility] Comment on above: Performed By: #### B MP #### [facility] [address] [id number] Nadegetomy Pan Urea nitrogen [Mass/Vol] 24.0 mg/dL Critically high 7.0-17.0 [facility] Comment on above: Performed By: #### B MP #### [facility] [address] [place] [address] Nadege Pan Urea nitrogen/Creatinine [Mass ratio] 26.4 mg/mg Normal [facility] Comment on above: Performed By: #### B MP #### [facility] [address] [place], [place] [address] Nadege Pan CT ABD/PELVIS WO CONon 07-03 CT ABD/PELVIS WO CON EXAMINATION: CT ABD/PELVIS WO CON HISTORY: CALCULUS OF KIDNEY, acute right-sided flank pain that began today. COMPARISON: CT 05/11/2018. TECHNIQUE: CT examination of the abdomen and pelvis without IV contrast. Coronal and sagittal reformations were performed. Dose reduction techniques were achieved by using automated exposure control and/or adjustment of mA and/or kV according to patient size and/or use of iterative reconstruction technique. FINDINGS: Linear atelectasis or scarring within the lower lobes. ABDOMEN: The liver is incompletely included on this examination. Noncontrast CT examination of the included portions of the liver, gallbladder, adrenal glands and pancreas is unremarkable. Calcified granulomata are present within the spleen. No splenomegaly. No abdominal lymphadenopathy. Circumaortic left renal vein is noted. Renal vascular calcifications are present. No left intrarenal calculus, hydronephrosis, or focal renal lesion. Mild left renal cortical scarring. There is severe right hydronephrosis with prominent right perinephric stranding. No right intrarenal calculus. There is gas within the proximal right ureter in the region of the right ureteropelvic junction. PELVIS: There is severe right hydroureter. There is a retained fragment of a right ureteral stent measuring approximately 10 cm in length and surrounded by dense calcification measuring up to 9 x 8 mm in cross-section with density of 853 Hounsfield units. There is fluid versus prominence of the endometrium, as before. No pelvic free fluid. No pelvic lymphadenopathy. Extensive colonic diverticulosis without evidence for acute diverticulitis. Normal appendix. Small bowel diverticula, as before without associated diverticulitis. No free air. No suspicious osteolytic or osteoblastic lesion. IMPRESSION: 1. Severe right hydronephrosis and right hydroureter. This is secondary to obstruction related to an approximately 10 cm residual stent fragment within the mid to distal ureter surrounded by dense calcification. There is gas within the ureter proximal to the retained stent fragment which may be related to recent instrumentation or possibly an underlying infectious process. There is prominent right perinephric stranding/fluid. 2. Extensive colonic diverticulosis. Small bowel diverticulosis. No evidence for acute diverticulitis. Normal appendix. 3. Prominence of the endometrium versus fluid within the endometrial cavity, similar in appearance to the prior examination. This can be better evaluated with dedicated pelvic ultrasound. Electronically authenticated by: ANGELICA SORENSON Date: 2020-07-02 23:54 Normal [facility] CULTURE BLOODon 07-03-2020 Microscopic examination of blood, culture Culture Observations: No growth at 5 days Normal [facility] Comment on above: Performed By: #### B LDCX2 ####[facility] [address] [id number] Microscopic examination of blood, culture Culture Observations: No growth at 5 days Normal [facility] Comment on above: Performed By: #### B LDCX1 ####[facility] [address] [place], [place] [address]Fpmrir Viviane CULTURE URINEon 07-03-2020 CULTURE URINE Culture Observations: Light growth of mixed genital aggie.No potential pathogens seen. Normal [facility] Comment on above: Performed By: #### U RCX ####[facility] [address] [place], [place] [address]Xvqihf Viviane ER URINE PROFILEon 0 Bilirubin Ql (U) Negative Normal NEGATIVE [facility] Comment on above: Performed By: #### E RUR, UMICRO ####[facility] [address] [phone] Viviane Clarity (U) CLEAR Normal [facility] Comment on above: Performed By: #### CRISTINA SALAMANCA ####[facility] [address] [place], [place] [address]Cynjzh Viviane Color (U) LT. YELLOW Normal YELLOW [facility] Comment on above: Performed By: #### CRISTINA SALAMANCA ####[facility] [address] [place], [place] [address]Gerken Viviane ERUAHD A micrscopic examination will be performed if indicated. Normal [facility] Comment on above: Performed By: #### CRISTINA SALAMANCA ####[facility] [address] [place], [place] [address]Gerken Viviane Glucose Ql (U) Negative Normal NEGATIVE [facility] Comment on above: Performed By: #### CRISTINA SALAMANCA ####[facility] [address] [place], [place] [address]Gerken Viviane Hemoglobin Ql (U) SMALL Normal NEGATIVE [facility] Comment on above: Performed By: #### CRISTINA SALAMANCA ####[facility] [address] [place], [place] [address]Gerken Viviane Ketones Ql (U) Negative Normal NEGATIVE [facility] Comment on above: Performed By: #### CRISTINA SALAMANCA ####[facility] [address] [place], [place] [address]Gerken Viviane LEUKOCYTES TRACE Normal NEGATIVE [facility] Comment on above: Performed By: #### CRISTINA SALAMANCA ####[facility] [address] [place], [place] [address]Gerken Viviane Nitrite Ql (U) Negative Normal NEGATIVE [facility] Comment on above: Performed By: #### CRISTINA SALAMANCA ####[facility] [address] [place], [place] [address]Gerken Viviane pH (U) 8.5 [pH] Normal 5-9 [facility] Comment on above: Performed By: #### SAMIR SALAMANCARO ####[facility] [address] [id number] Pan Protein Ql (U) Negative Normal [facility] Comment on above: Performed By: #### CRISTINA SALAMANCA ####[facility] [address] [id number] Pan SPEC GRAVITY 1.020 Normal 1.005-<=1.025 [facility] Comment on above: Performed By: #### SAMIR SALAMANCARO ####[facility] [address] [address]Nadege Pan UR MICRO IND INDICATED Normal [facility] Comment on above: Performed By: #### CRISTINA SALAMANCA ####[facility] [address] [address]Gertomy Pan Urobilinogen Qn (U) 0.2 {Cuong'U}/dL Normal [facility] Comment on above: Performed By: #### CRISTINA SALAMANCA ####[facility] [address] [address]Nadege Pan LACTATE/LACTIC ACIDon 2019 Lactate [Moles/Vol] 1.9 mmol/L Normal 0.7-2.0 [facility] Comment on above: Performed By: #### L ACT #### [facility] [address] [phone] Nadege Pan PTTon 07-03-2020 aPTT Coag (Bld) [Time] 22.5 s Normal 22.3-36.2 [facility] Comment on above: Performed By: #### P T, PTT #### [facility] [address] [phone] Nadegetomy Pan PTT NORMAL PLEASE NOTE: NORMAL RANGE CHANGE 08-07-2015 DUE TO REAGENT LOT CHANGE Normal [facility] Comment on above: Performed By: #### P T, PTT #### [facility] [address] [id number] Nadege Pan RESPIRATORY PANEL PLUSon Adenovirus Not detected Normal NOT DETECTED [facility] Comment on above: Performed By: #### R SPLUS ####[facility] [address] Viviane B. Parapertusis Not detected Normal NOT DETECTED [facility] Comment on above: Performed By: #### R SPLUS ####[facility] [address] Viviane B. Pertussis Not detected Normal NOT DETECTED [facility] Comment on above: Performed By: #### R SPLUS ####[facility] [address] Viviane Chlamydia Pneumoniae Not detected Normal NOT DETECTED [facility] Comment on above: Performed By: #### R SPLUS ####[facility] [address] [place], [place] [address] Coronavirus 229E Not detected Normal NOT DETECTED [facility] Comment on above: Performed By: #### R SPLUS ####[facility] [address] Coronavirus HKU1 Not detected Normal NOT DETECTED [facility] Comment on above: Performed By: #### R SPLUS ####[facility] [address] [place] [address] Viviane Coronavirus NL63 Not detected Normal NOT DETECTED [facility] Comment on above: Performed By: #### R SPLUS ####[facility] [address] Viviane Coronavirus OC43 Not detected Normal NOT DETECTED [facility] Comment on above: Performed By: #### R SPLUS ####[facility] [address] Viviane Influenza A H1 2009 Not detected Normal NOT DETECTED [facility] Comment on above: Performed By: #### R SPLUS ####[facility] [address] Viviane Influenza B Not detected Normal NOT DETECTED [facility] Comment on above: Performed By: #### R SPLUS ####[facility] [address] Viviane Metapneumovirus Not detected Normal NOT DETECTED [facility] Comment on above: Performed By: #### R SPLUS ####[facility] [address] [phone] Viviane Mycoplas. Pneumoniae Not detected Normal NOT DETECTED [facility] Comment on above: Performed By: #### R SPLUS ####[facility] [address] Viviane Parainfluenza 1 Not detected Normal NOT DETECTED [facility] Comment on above: Performed By: #### R SPLUS ####[facility] Xfvrbdfcvs2359 [address] [place] Parainfluenza 2 Not detected Normal NOT DETECTED [facility] Comment on above: Performed By: #### R SPLUS ####[facility] Psdthxwpel5771 [address] [place] Parainfluenza 3 Not detected Normal NOT DETECTED [facility] Comment on above: Performed By: #### R SPLUS ####[facility] Cqefrtcukc7523 [address] [place] Parainfluenza 4 Not detected Normal NOT DETECTED [facility] Comment on above: Performed By: #### R SPLUS ####[facility] Megoopmdgw5078 [address] [place] Rhino/Enterovirus Not detected Normal NOT DETECTED [facility] Comment on above: Performed By: #### R SPLUS ####[facility] Pcollueabg0717 [address] [place]iane RP2 Header 1 RESPIRATORY PANEL: VIRUSES Normal [facility] Comment on above: Performed By: #### R SPLUS ####[facility] Ccszsbjmfo1151 [address] [place] RP2 Header 2 RESPIRATORY PANEL: BACTERIA Normal [facility] Comment on above: Performed By: #### R SPLUS ####[facility] Guaejdxuvz1242 [address] [place] RP2 Header 4 EUA SEE BELOW Normal [facility] Comment on above: Result Comment: This test is not yet approved or cleared by the [place] FDA. When there are no FDA-approved or cleared tests available, and other criteria are met, FDA can make tests available under an emergency access mechanism called an Emergency Use Authorization (EUA). The EUA for this test is supported by the Cell Lead of Health and Human Service?s (HHS?s) declaration that circumstances exist to justify the emergency use of in vitro diagnostics for the detection and/or diagnosis of the virus that causes COVID-19. This EUA will remain in effect (meaning this test can be used) for the duration of the COVID-19 declaration justifying emergency of IVDs, unless it is terminated or revoked by FDA (after which the test may no longer be used). Performed By: #### R SPLUS ####[facility] [address] [place] [address] [place] RSV Not detected Normal NOT DETECTED [facility] Comment on above: Performed By: #### R SPLUS ####[facility] [address]ksrt[address] [place] [address] Viviane SARS-CoV-2 (COVID-19) RNA ANGEL+probe Ql (Unsp spec) Not detected Normal NOT DETECTED [facility] Comment on above: Performed By: #### R SPLUS ####[facility] Rcw[address] [place] [address] [place] URINE MICROSCOPIC ONLYon AMORPHOUS CRYSTALS MODERATE Normal [facility] Comment on above: Performed By: #### CRISTINA SALAMANCA ####[facility] Ykvzmrvwrb2034 [address] [place] BACTERIA SMALL Normal NONE SEEN [facility] Comment on above: Performed By: #### E CRISTINA MAGAÑA ####[facility] Efyriabltb7406 [address] [place] Bacteria identified Cx Nom (U) INDICATED Normal [facility] Comment on above: Performed By: #### SAMIR SALAMANCARO ####[facility] Rdmtkzizeh1058 [place], [place] [address]Icdbjf Viviane CAST NONE SEEN Normal NONE SEEN [facility] Comment on above: Performed By: #### SAMIR SALAMANCARO ####[facility] Elkjdplbke8649 [place], [place] [address]Dqzngw Viviane Crystals LM Nom (Urine sed) SEEN Normal NONE SEEN [facility] Comment on above: Performed By: #### SAMIR SALAMANCARO ####[facility] Guccvlaolj6672 [place], [place] [address]Qxzevu Viviane Epithelial cells LM Ql (Urine sed) FEW Normal [facility] Comment on above: Performed By: #### SAMIR SALAMANCARO ####[facility] Oqoonnecsw8290 [place], [place] [address]Nwxpls Viviane MUCOUS NONE SEEN Normal NONE SEEN [facility] Comment on above: Performed By: #### SAMIR SALAMANCARO ####[facility] Voomnqocyt8247 [place], [place] [address]Yuwvbx Viviane RBC 10-20 Normal 0-2 [facility] Comment on above: Performed By: #### CRISTINA SALAMANCA ####[facility] Tborowzlrx3923 [place], [place] [address]Xzvckx Viviane WBC 10-20 Normal NONE SEEN [facility] Comment on above: Performed By: #### CRISTINA SALAMANCA ####[facility] Fslutufxzg5671 [place], [place] [address]Yctbno Viviane XR CHEST 1 Von 07-03-2020 XR CHEST 1 V EXAM: XR CHEST 1 V HISTORY: CHEST PAIN, UNSPECIFIED COMPARISON: None. TECHNIQUE: Single AP portable upright view of the chest is submitted for review. FINDINGS: The heart size is normal. No dense focal consolidation, pneumothorax or pleural effusion is seen. The visualized osseous structures appear unremarkable. IMPRESSION: No radiographic evidence for acute cardiopulmonary disease. Electronically authenticated by: ALEX FAY Date: 2020-07-02 23:35 Normal [facility] XR RETROGRADE PYELOGRAMon XR RETROGRADE PYELOGRAM EXAMINATION: XR RETROGRADE PYELOGRAM HISTORY: Kidney stone COMPARISON: No relevant comparison available. FLUOROSCOPY TIME: Fluoro time measures 37 seconds and 1 images were obtained. TECHNIQUE: Standard level fluoroscopic mode of operation utilized. FINDINGS: A single spot fluoroscopic image demonstrates retrograde filling of the distal one third of the right ureter. No filling defect within the distal right ureter. IMPRESSION: 1. No filling defect within the distal right ureter. Electronically authenticated by: SRIKANTH SIMPSON Date: 2020-07-03 14:18 Normal [facility] CBC AUTO DIFFon 07-02-2020 BASO # 0.1 103/ul Normal 0.0-0.1 [facility] Comment on above: Performed By: #### C BC ####[facility] Oxcxy[address] [place], [place] [address]Gerken Viviane Basophils/100 WBC (Bld) 0.3 % Normal 0.2-2.0 [facility] Comment on above: Performed By: #### C BC ####[facility] Addfidhawr[address] [place], [place] [address]Gerken Viviane EO # 0.2 103/ul Normal 0.0-0.7 [facility] Comment on above: Performed By: #### C BC ####[facility] Junsfkpcxc[address] [place], [place] [address]Ger[place] Viviane Eosinophils/100 WBC (Bld) 1.3 % Normal 0.9-7.0 [facility] Comment on above: Performed By: #### C BC ####[facility] Shyhywnxes[address] [place], [place] [address]Ger[place]iane Erythrocyte distribution width (RBC) [Ratio] 13.3 % Normal 11.0-15.0 [facility] Comment on above: Performed By: #### C BC ####[facility] [address] [place], [place] [address]Ger[place]iane Hematocrit (Bld) [Volume fraction] 39.1 % Normal 36.0-48.0 [facility] Comment on above: Performed By: #### C BC ####[facility] Emnfvurxfi[address] [place], [place] [address]Ger[address] [place]iane Hemoglobin (Bld) [Mass/Vol] 12.8 g/dL Normal 12.0-16.0 [facility] Comment on above: Performed By: #### C BC ####[facility] Ameuiyamtz2212 [address] [place] IG # 0.06 10e3/ul Critically high 0.00-0.03 [facility] Comment on above: Performed By: #### C BC ####[facility] R[address]xs[address] [place] [address] [place] IG % 0.4 % Normal 0.0-0.5 [facility] Comment on above: Performed By: #### C BC ####[facility] [address]ks[address] [place] [address] [place] LYMPH # 1.2 103/ul Normal 1.2-3.8 [facility] Comment on above: Performed By: #### C BC ####[facility] Tsz[address]ym[address] [place] [address] [place] Lymphocytes/100 WBC (Bld) 7.0 % Critically low 20.5-60.0 [facility] Comment on above: Performed By: #### C BC ####[facility] Vw[address]ks[address] [place] [address] [place] MANUAL DIFF REQ NO Normal [facility] Comment on above: Performed By: #### C BC ####[facility] Wgzworftzp[address] [place] [address] [place] MCH (RBC) [Entitic mass] 29.2 pg Normal 26.7-34.0 [facility] Comment on above: Performed By: #### C BC ####[facility] Qwpifdywbp[address] [place] [address] [place] MCHC (RBC) [Mass/Vol] 32.7 g/dL Normal 29.9-35.2 [facility] Comment on above: Performed By: #### C BC ####[facility] Exgqczezx[address] [place] [address] [place] MCV (RBC) [Entitic vol] 89.1 fL Normal 81.0-99.0 [facility] Comment on above: Performed By: #### C BC ####[facility] [address] [place] [address]iane MONO # 1.1 103/ul Critically high 0.3-0.8 [facility] Comment on above: Performed By: #### C BC ####[facility] Eimatum[address] [place] [address] Monocytes/100 WBC (Bld) 6.5 % Normal 1.7-12.0 [facility] Comment on above: Performed By: #### C BC ####[facility] Hwrfuz[address]wmz9415 [address] [place] NEUT # 14.0 103/ul Critically high 1.4-6.5 [facility] Comment on above: Performed By: #### C BC ####[facility] Mrlunwddgx3800 [address] Pan Neutrophils/100 WBC (Bld) 84.5 % Critically high 43.0-75.0 [facility] Comment on above: Performed By: #### C BC ####[facility] [address] [place], [place] [address]Nadege Pan Platelet mean volume (Bld) [Entitic vol] 8.7 fL Critically low 9.5-13.5 [facility] Comment on above: Performed By: #### C BC ####[facility] U[address]tewekny[address] [place], [place] [address]Ger[address] [place] PLT 257 103/ul Normal 150-450 [facility] Comment on above: Performed By: #### C BC ####[facility] Yj[address] [place], [place] [address] RBC 4.39 106/ul Normal 4.20-5.40 [facility] Comment on above: Performed By: #### C BC ####[facility] Y[address]cypm[address] [place], [place] [address] WBC 16.5 103/ul Critically high 4.0-11.0 [facility] Comment on above: Performed By: #### C BC ####[facility] Fxsdcngvbq4556 [place], [place] [address]Soqpwa Viviane LIPASEon 07-02-2020 Lipase [Catalytic activity/Vol] 238.0 U/L Normal 23.0-300.0 [facility] Comment on above: Performed By: #### T ROP, CMP, LIPA #### [facility] [address] [id number] [place]iane PROF 14(COMP METB)on 020 Albumin [Mass/Vol] 3.7 g/dL Normal 3.5-5.0 [facility] Comment on above: Performed By: #### T ROP, CMP, LIPA #### [facility] [address] [address] [place]ge [place]iane Albumin/Globulin [Mass ratio] 1.1 {ratio} Normal [facility] Comment on above: Performed By: #### T ROP, CMP, LIPA #### [facility] [address] [place] [address] [place]iane ALP [Catalytic activity/Vol] 62 U/L Normal 38-126 [facility] Comment on above: Performed By: #### T ROP, CMP, LIPA #### [facility] [address] [place] [address] [place]iane ALT [Catalytic activity/Vol] 27 U/L Normal 9-52 [facility] Comment on above: Performed By: #### T ROP, CMP, LIPA #### [facility] [address] [place] [address] [place]iane Anion gap [Moles/Vol] 11.4 mmol/L Normal [facility] Comment on above: Performed By: #### T ROP, CMP, LIPA #### [facility] [address] [id number] [place]iane AST [Catalytic activity/Vol] 20 U/L Normal 14-36 [facility] Comment on above: Performed By: #### T ROP, CMP, LIPA #### [facility] [address] [id number] [place]iane Bilirubin [Mass/Vol] 0.4 mg/dL Normal 0.2-1.3 [facility] Comment on above: Performed By: #### T ROP, CMP, LIPA #### [facility] [address] [address] [place]iane Calcium [Mass/Vol] 9.2 mg/dL Normal 8.4-10.[address] [facility] Comment on above: Performed By: #### T ROP, CMP, LIPA #### [facility] [address] [address] [place]iane Chloride [Moles/Vol] 104 mmol/L Normal 98-107 [facility] Comment on above: Performed By: #### T ROP, CMP, LIPA #### [facility] [address] [place] [address] [place]iane CO2 [Moles/Vol] 29.2 mmol/L Normal 22.0-30.0 [facility] Comment on above: Performed By: #### T ROP, CMP, LIPA #### [facility] [address] [place] [address] [place]iane Creatinine [Mass/Vol] 0.90 mg/dL Normal 0.52-1.04 [facility] Comment on above: Performed By: #### T ROP, CMP, LIPA #### [facility] [address] [place] [address] [place] EGFR-AF LAO >60 Normal >=60 [facility] Comment on above: Performed By: #### T ROP, CMP, LIPA #### [facility] [address] [place] [address] [place] EGFR-NON AF LAO =60 Normal >=60 [facility] Comment on above: Performed By: #### T ROP, CMP, LIPA #### [facility] [address] [place] [address] [place]iane Globulin (S) [Mass/Vol] 3.4 g/dL Normal [facility] Comment on above: Performed By: #### T ROP, CMP, LIPA #### [facility] [address] [address] [place]iane Glucose [Mass/Vol] 119 mg/dL Critically high 74-106 [facility] Comment on above: Performed By: #### T ROP, CMP, LIPA #### [facility] [address] [address] [place]iane Potassium [Moles/Vol] 3.6 mmol/L Normal 3.4-5.0 [facility] Comment on above: Performed By: #### T ROP, CMP, LIPA #### [facility] [address] [address] [place] Protein [Mass/Vol] 7.1 g/dL Normal 6.1-8.[address] [facility] Comment on above: Performed By: #### T ROP, CMP, LIPA #### [facility] [address] [place] [address] [place]iane Sodium [Moles/Vol] 141 mmol/L Normal 137-[address] [facility] Comment on above: Performed By: #### T ROP, CMP, LIPA #### [facility] [address] [address] [place]iane Urea nitrogen [Mass/Vol] 18.0 mg/dL Critically high 7.0-17.0 [facility] Comment on above: Performed By: #### T ROP, CMP, LIPA #### [facility] [address] [address] [place]iane Urea nitrogen/Creatinine [Mass ratio] 20.0 mg/mg Normal [facility] Comment on above: Performed By: #### T ROP, CMP, LIPA #### [facility] [address] [place] [address] [place]iane PROTIMEon 07-02-2020 INR Coag (PPP) [Relative time] 0.93 {INR} Normal [facility] Comment on above: Performed By: #### P T, PTT #### [facility] [address] [place] [address] [place]iane INR GUIDELINES SEE BELOW Normal [facility] Comment on above: Result Comment: MILAN RED INR: 2.0 - 3.0 CONDITIONS NOT LISTED BELOW 2.5 - 3.5 FOR PROSTHETIC HEART VALVE REPLACEMENT 2.5 - 3.5 RECURRENT THROMBOSIS Performed By: #### P T, PTT #### [facility] [address] [place], [place] [address] Nadegetomy Pan PT Coag (PPP) [Time] 9.9 s Normal 9.0-11.6 [facility] Comment on above: Performed By: #### P T, PTT #### [facility] [address] [place] [phone] [place] Viviane PT NORMAL PLEASE NOTE: NORMAL RANGE CHANGE 05-31-2014 DUE TO REAGENT LOT CHANGE Normal [facility] Comment on above: Performed By: #### P T, PTT #### [facility] [address] [place], [place] [phone] [place] Pan TROPONIN - Ion 07-02-2020 TROP <0.012 Normal <=0.034 [facility] Comment on above: Performed By: #### T ROP, CMP, LIPA #### [facility] [address] [place] [phone] [place] Viviane TROPONIN RANGE SEE BELOW Normal [facility] Comment on above: Result Comment: <0.0 34 ng/ml NEGATIVE 0.034-0.119 INDETERMINATE 0.120 AMI CUT OFF Performed By: #### T ROP, CMP, LIPA #### [facility] [address] [place], [place] [phone] [place] Viviane Dipstick and Microscopicon 0 01-25-2019 Appearance Nom (U) Cloudy Critically abnormal Clear [facility] Comment on above: Order Comment: CALL [phone] Name Collection Type:: Collection Method Unknown Performed By: #### A DDONUAPLUS, CUU #### [facility] [address] [place] [address] [place] Bacteria LM.HPF #/area (Urine sed) None Seen Normal None Seen [facility] Comment on above: Order Comment: CALL [phone] Name Collection Type:: Collection Method Unknown Performed By: #### A DDONUAPLUS, CUU #### [facility] [address] [place] [id number] [place] Bilirubin,Urine Negative Normal Negative [facility] Comment on above: Order Comment: CALL [phone] Name Collection Type:: Collection Method Unknown Performed By: #### A DDONUAPLUS, CUU #### [facility] [address] Color Nom (U) Yellow Normal Yellow [facility] Comment on above: Order Comment: CALL [phone] Name Collection Type:: Collection Method Unknown Performed By: #### A DDONUAPLUS, CUU #### [facility] [address] [place] [address] [place] Glucose Ql (U) Normal Normal Normal [facility] Comment on above: Order Comment: CALL [phone] Name Collection Type:: Collection Method Unknown Performed By: #### A DDONUAPLUS, CUU #### [facility] [address] [place] [address] [place] Hyaline Casts,Urine None Seen Normal 0-1 [facility] Comment on above: Order Comment: CALL [phone] Name Collection Type:: Collection Method Unknown Performed By: #### A DDONUAPLUS, CUU #### [facility] [address] [place] [address] [place] Ketones Ql (U) Negative Normal Negative [facility] Comment on above: Order Comment: CALL [phone] Name Collection Type:: Collection Method Unknown Performed By: #### A DDONUAPLUS, CUU #### [facility] [address] [place] [address] [place] Leukocyte esterase Test strip Ql (U) 3+ High Negative [facility] Comment on above: Order Comment: CALL [phone] Name Collection Type:: Collection Method Unknown Performed By: #### A DDONUAPLUS, CUU #### [facility] [address] [place] [address] [place] Nitrite,Urine Negative Normal Negative [facility] Comment on above: Order Comment: CALL [phone] Name Collection Type:: Collection Method Unknown Performed By: #### A DDONUAPLUS, CUU #### [address] Occult Blood,Urine 3+ High Negative [facility] Comment on above: Order Comment: CALL [phone] Name Collection Type:: Collection Method Unknown Result Comment: PERF ORMED BY: [place] [address] PATHOLOGIST RETAIL LOSS PREVENTION OFFICER JAMARCUS CARMICHAEL M.D. Performed By: #### A DDONUAPLUS, CUU #### [address] Other Casts,Urine None Seen Normal None Seen [facility] Comment on above: Order Comment: CALL [phone] Name Collection Type:: Collection Method Unknown Result Comment: PERF ORMED BY: [place] [address] PATHOLOGIST RETAIL LOSS PREVENTION OFFICER JAMARCUS CARMICHEAL M.D. Performed By: #### A DDONUAPLUS, CUU #### [address] pH (U) 6.0 [pH] Normal 5.0-9.0 [facility] Comment on above: Order Comment: CALL [phone] Name Collection Type:: Collection Method Unknown Performed By: #### A DDONUAPLUS, CUU #### [address] Protein mass conc (U) 100 mg/dL High Negative [facility] Comment on above: Order Comment: CALL [phone] Name Collection Type:: Collection Method Unknown Performed By: #### A DDONUAPLUS, CUU #### [place] [address] [place] RBC LM.HPF #/area (Urine sed) Innumerable High 0-4 [facility] Comment on above: Order Comment: CALL [phone] Name Collection Type:: Collection Method Unknown Performed By: #### A DDONUAPLUS, CUU #### [address] Renal Epithelial Cells,Urine None Seen Normal 0-1 [facility] Comment on above: Order Comment: CALL [phone] Name Collection Type:: Collection Method Unknown Performed By: #### A DDONUAPLUS, CUU #### [address] Specificy [place],Urine 1.018 Normal 1.001-1.030 [facility] Comment on above: Order Comment: CALL [phone] Name Collection Type:: Collection Method Unknown Performed By: #### A DDONUAPLUS, CUU #### [address] Squamous Epithelial Cell,Urine 20-30 High 0-2 [facility] Comment on above: Order Comment: CALL [phone] Name Collection Type:: Collection Method Unknown Performed By: #### A DDONUAPLUS, CUU #### [address] Urobilinogen,Urine Normal Normal Normal [facility] Comment on above: Order Comment: CALL [phone] Name Collection Type:: Collection Method Unknown Performed By: #### A DDONUAPLUS, CUU #### [address] WBC LM.HPF #/area (Urine sed) 20-49 High 0-4 [facility] Comment on above: Order Comment: CALL [phone] Name Collection Type:: Collection Method Unknown Performed By: #### A DDONUAPLUS, CUU #### [address] Urine Cultureon 01-25-2019 Bacteria identified Cx Nom (U) No Growth 2 Days PERFORMED BY: [place] [address] PATHOLOGIST RETAIL LOSS PREVENTION OFFICER JAMARCUS CARMICHAEL M.D. [facility] Comment on above: Performed By: #### A DDONUAPLUS, CUU #### [address] Encounters Encounter Date Encounter Type Care Provider Facility Start: 12-06-2023 Refill Radha Carl ASSISTANT TECHNICIAN [facility] Comment on above: Moderate asthma with out complication, unspecified whether persistent Start: 12-02-2023 Refill Alyssa Violet ASSISTANT TECHNICIAN [facility] Comment on above: Moderate asthma with out complication, unspecified whether persistent Start: 08-18-2023 End: 08-18-[address] [facility] Start: 08-18-2023 End: 08-18-2023 Encounter for other preprocedural examination [facility] Start: 03-13-2021 End: 03-14-[address] KULDIP SWEET Facility:[facility] Start: 07-03-2020 End: 07-04-[address] ELVER TURNER Facility:[facility] Procedures Date Procedure Procedure Detail Performing Clinician Start: 08-03-2023 Adult depression scr eening assessment Alyssa Violet ASSISTANT TECHNICIAN Start: 07-03-2020 Dilation of Right Ur eter with Intraluminal Device, Via Natural or Artificial Opening Endoscopic DR ELVER TURNER Start: 07-03-2020 Extirpation of Matte r from Right Ureter, Via Natural or Artificial Opening Endoscopic DR ELVER TURNER Start: 07-03-2020 Fluoroscopy of Right Kidney, Ureter and Bladder DR ELVER TURNER Plan of Treatment Date Care Activity Detail Author Start: 10-02-2026 DTaP,Tdap and Td Vaccines (2 - Td or Tdap) DTaP,Tdap and Td Vaccines (2 - Td or Tdap) [facility] Start: 08-03-2024 Adult [facility] Start: 08-03-2024 Depression Screening [facility] Start: 08-03-2024 Fall Risk Screening [facility] Start: 08-03-2024 Tobacco Screening [facility] [facility] Start: 11-03-2023 Medicare Annual Wellness Visit Medicare Annual Wellness Visit [facility] Start: 05-14-2023 COVID-19 Vaccine ( season) COVID-19 Vaccine () [facility] Immunizations Immunization Date Immunization Notes Care Provider Fa cility 06-15-2023 Influenza Vaccine, Quadrivalent, Adjuvanted [facility] Payers Date Payer Category Payer Medicare MEDICARE MEDICAR E PART A & B [id number] 2002-Present [phone] [address] [place] [address] [id number] 1957 Medicare [id number] 1935 Unknown [id number] 1935 Unknown [id number] Social History Date Type Detail Facility Start: 09-09-2022 Tobacco smoking stat [facility] Ex-smoker [facility] History of tobacco use Current smoker [facility] History of tobacco use Cigarette Smoker P [facility] Start: 09-09-2022 End: 06-15-2023 Cigarettes smoked current (pack per day) - Reported 2 [facility] Start: 09-09-2022 Tobacco use and exposure Smoke less tobacco non-user [facility] Start: 08-03-2023 Alcohol intake Ex-drinker (finding) [facility] Start: 06-15-2023 End: 08-03-2023 Social connection and isolation panel [facility] Do you belong to any clubs or organizations such as catholic groups, unions, fraternal or athletic groups, or school groups? No [facility] Are you now , , , , never or living with a partner? [facility] How often to you hav e a drink containing alcohol? Never [facility] How many standard dr inks containing alcohol do you have on a typical day? Patient does not drink [facility] Do you feel stress - tense, restless, nervous, or anxious, or unable to sleep at night because your mind is troubled all the time - these days [OSQ] To some extent [facility] Start: 1935 Sex Assigned At Not on file [facility] Note 12-06-2023 Telephone Encounter - Kuldip Sweet, - 12/06/2023 4:26 PM EDT Note Date & Type Note Facility 12-06-2023 Miscellaneous Notes Formattin g of this note might be different from the original. Rx sent in. Please set up appointment documented in this encounter [facility] Telephone encounter Note 12-06-2023 Telephone Encounter - Kuldip Sweet, - 12/06/2023 4:26 PM EDT Note Date & Type Note Facility 12-06-2023 Telephone encount er Note Rx sent in. Please set up appointment [facility] Note 12-02-2023 Telephone Encounter - Kuldip Sweet DO - 12/02/2023 9:18 AM EDT Note Date & Type Note Facility 12-02-2023 Miscellaneous Notes Formattin g of this note might be different from the original. Rx sent in. She is due for recheck appt documented in this encounter [facility] Telephone encounter Note 12-02-2023 Telephone Encounter - Kuldip Sweet, - 12/02/2023 9:18 AM EDT Note Date & Type Note Facility 12-02-2023 Telephone encount er Note Rx sent in. She is due for recheck appt [facility] Progress note 08-18-2023 Note Date & Type Note Facility 08-18-2023 Note New patient here to establish care. Ref from Dr. Villela for surgery clearance prior to D&C hysteroscopy. PCP ordered lexiscan stress test but this has not yet been performed. Used to smoke 3 PPD x 40 years, but quit 25 years ago. Denies chest pain. Gets SOB w/ exertion, and has asthma. Review of Systems Cardiovascular: Positive for dyspnea on exertion. All other systems reviewed and are negative. [facility] Progress note 08-18-2023 Note Date & Type Note Facility 08-18-2023 Note Cardiovascular Medic [facility] SUBJECTIVE Chief Complaint Patient presents with New Patient Pre-op Exam HPI Iliana Gasca is a 88 y.o. female here as a new patient and for cardiac risk stratification. Her daughter Gabby accompanied her today. She is pending a D&C and a hysteroscopy. Her PCP ordered for a stress test due to her TONG and METS <4. She reports having TONG with minimal exertion such as taking the dog for a short walk. The weather can worsen her symptoms. She states she is not very active. She has leg swelling. Worsens at the end of the day. She denies c/o CP, orthopnea, PND, dizziness/LH, palpitations, syncope. Diet: no specific diet Exercise: none currently Tobacco: former smoker ETOH: denies Recreational drug use: denies Allergies Allergen Reactions Theophylline Palpitations Other reaction(s): Unknown Other Reaction(s): Tachycardia, Unknown Other reaction(s): Unknown Patient Active Problem List Diagnosis B12 deficiency Chronic osteoarthritis Essential hypertension Mixed hyperlipidemia Moderate asthma without complication Noncompliance Osteoporosis, postmenopausal Vitamin D insufficiency Past Medical History: Diagnosis Date Asthma Hyperlipidemia Hypertension Past Surgical History: Procedure Laterality Date SECTION, CLASSIC Family History Problem Relation Name Age of Onset Heart failure Mother Hypertension Daughter Diabetes Daughter Social History Tobacco Use Smoking status: Former Types: Cigarettes Quit date: 1997 Years since quittin.9 Smokeless tobacco: Never Substance Use Topics Alcohol use: Not Currently ROS Cardiovascular: Positive for dyspnea on exertion. All other systems reviewed and are negative. OBJECTIVE Visit Vitals BP 152/86 (BP Location: Left arm, Patient Position: Sitting) Pulse 67 Ht 1.499 m (4' 11 ) Wt 49.4 kg (109 lb) SpO2 96% BMI 22.02 kg/m??? Smoking Status Former BSA 1.43 m??? Medications: Current Outpatient Medications: albuterol 90 mcg/actuation inhaler, inhale 2 puffs by mouth every 4 hours if needed, Disp: , Rfl: moexipril (Univasc) 15 mg tablet, Take 15 mg by mouth in the morning., Disp: , Rfl: montelukast (Singulair) 10 mg tablet, Take 1 tablet by mouth in the morning., Disp: , Rfl: nebivolol (Bystolic) 5 mg tablet, Take 1 tablet (5 mg) by mouth in the morning., Disp: 30 tablet, Rfl: 3 Physical Exam Vitals reviewed. Constitutional: Appearance: Normal appearance. She is normal weight. HENT: Head: Normocephalic and atraumatic. Right Ear: External ear normal. Left Ear: External ear normal. Eyes: Extraocular Movements: Extraocular movements intact. Conjunctiva/sclera: Conjunctivae normal. Pupils: Pupils are equal, round, and reactive to light. Neck: Vascular: No carotid bruit. Cardiovascular: Rate and Rhythm: Normal rate and regular rhythm. Pulses: Normal pulses. Heart sounds: Normal heart sounds. Pulmonary: Effort: Pulmonary effort is normal. Breath sounds: Normal breath sounds. Abdominal: General: Bowel sounds are normal. Palpations: Abdomen is soft. Musculoskeletal: Cervical back: Neck supple. Right lower leg: Edema present. Left lower leg: Edema present. Skin: General: Skin is warm and dry. Neurological: General: No focal deficit present. Mental Status: She is alert and oriented to person, place, and time. Psychiatric: Mood and Affect: Mood normal. Behavior: Behavior normal. Thought Content: Thought content normal. Judgment: Judgment normal. Labs: 07/12/2023 CBC - unremarkable Cr 0.7, BUN 20, K 4.1, eGFR >60, AST 14, ALT 19 Testing/Procedures: EKG 08/03/2023: SR, nonspecific ST/T wave abnormalities ASSESSMENT/PLAN: Diagnosis Plan 1. Dyspnea on exertion Lexiscan Stress Myocardial Perfusion Imaging 2. Essential hypertension nebivolol (Bystolic) 5 mg tablet 3. Pre-op evaluation Lexiscan Stress Myocardial Perfusion Imaging PLAN: -Patient is pending a D&C and a hysteroscopy. Her PCP had ordered a stress test for risk factor stratification for her TONG and METS <4. Called [facility], they have not received an order, will send an order over. Her EKG showed SR with nonspecific ST/T wave abnormalities -Her BP is elevated today. She is not checking her BP at home. She admits to being non-compliant with her second dose of carvedilol. Will change carvedilol to nebivolol 5mg daily to help with compliance and can increase as needed for blood pressure control. Asked her to monitor her BP 1-2 hours after medications. Notify us or PCP if it continues to run elevated. No follow-ups on file. Darren Pressley NP [facility] Cardiovascular Medicine [facility] Evaluation note Note Date & Type Note Facility Evaluation note Diagnosis Moderate asthma without complication, unspecified whether persistent documented in this encounter [facility] Instructions Note Date & Type Note Facility Instructions Not on filedocumented in this en counter [facility] Summary Purpose Family History No Family History Records FoundNo Family History Records FoundNo Family History Records FoundNo Family History Records FoundNo Family History Records Found Advance Directives No Advanced Directives Records FoundNo Advanced Directives Records FoundNo Advanced Directives Records FoundNo Advanced Directives Records FoundNo Advanced Directives Records Found Additional Source Comments INFORMATION SOURCE (unrecogn ized section and content) DATE CREATED AUTHOR 02/04/2019 [facility] DATE CREATED AUTHOR AUTHOR'S ORGANIZ ATION 03/22/2021 [facility] DATE CREATED AUTHOR AUTHOR'S ORGANIZ ATION 05/30/2021 Dunne Toro [facility] DATE CREATED AUTHOR AUTHOR'S ORGANIZ ATION 03/07/2022 [facility] DATE CREATED AUTHOR AUTHOR'S ORGANIZ ATION 08/20/2023 [facility] Reason for Visit (unrecogniz ed section and content) Reason Onset Date Comments Med Refill 12/02/2023 Reason Onset Date Comments Med Refill 12/06/2023 Care Teams (unrecognized sec tion and content) City Letter [employer]rier Relationship Specialty Start Date End Date Kuldip Sweet DO [address], [place] [address] PCP - General Family Medicine 05/11/18 FOR RECORDS PERTAINING TO PATIENTS WHO ARE OR HAVE BEEN ENROLLED IN A CHEMICAL DEPENDENCY/SUBSTANCEABUSE PROGRAM, SOME INFORMATION MAY BE OMITTED. This clinical summary was aggregated from multiple sources. Caution should be exercised in using it in the provision of clinical care. This summary normalizes information from multiple sources, and as a consequence, information in this document may materially change the coding, format and clinical context of patient data. In addition, data may be omitted in some cases. CLINICAL DECISIONS SHOULD BE BASED ON THE PRIMARY CLINICAL RECORDS. [facility]. provides no warranty or guarantee of the accuracy or completeness of information in this document.
[2024-01-17] MEDS: REGADENOSON 0.4 MG/5 ML SYRINGE 0.400000000000000022 MG IV (09:32)
== END 2024-01-17 07:32 | disposition home or self-care (01) ==
LOC: NM 07:33
PROVIDERS: Family Provider Family Medicine; Visit Provider Nurse Practitioner Family
DX: Z01.818 Encounter for other preprocedural examination (principal); R06.09 Other forms of dyspnea
CPT/HCPCS: 78452; 93017; A9500; J2785

== ENCOUNTER 2024-02-11 07:54 | Outpatient (OUT) | payer MEDICARE, SELFPAY ==
--- NOTE | 2024-02-11 08:00 | CA_ITS ---
Patient Name: TRINY FERRARI MR#: [id number] : 1935 Exam Date: 02/11/2024 Ordering Doctor: DR MONISHA JASMINE M.D. ECHOCARDIOGRAM REPORT PROCEDURE: CA ECHO DOPPLER COMPLETE INDICATIONS: Dyspnea, hypertension, tachycardia COMPARISON: None. DESCRIPTION: COMPLETE ECHOCARDIOGRAM Real-time transthoracic echocardiography with 2D, M-mode, spectral and color flow Doppler performed. QUALITY: Technical quality was good. 59 , 107#, BP 138/70 LEFT VENTRICLE: Normal chamber size. Thickened septal wall. LV EF: Global left ventricular systolic function is hyperdynamic; visually estimated ejection fraction is 65 to 70%. No significant wall motion abnormalities. DIASTOLIC: Normal diastolic function. ATRIAL SEPTUM: Visually appears intact. LEFT ATRIUM: Normal chamber size. RIGHT ATRIUM: Normal chamber size. RIGHT VENTRICLE: Normal chamber size. Normal right ventricular systolic function. TRICUSPID VALVE: Normal mobility and thickness. Mild to moderate regurgitation. No evidence of pulmonary hypertension. RVSP 32 mmHg MITRAL VALVE: Normal mobility and thickness. No evidence of mitral valve stenosis. Mild mitral annular calcification. Trivial mitral regurgitation. AORTIC VALVE: Normal trileaflet appearance. No visible sclerosis. Normal leaflet mobility. No evidence of aortic valve stenosis. No aortic regurgitation. AORTIC ROOT: Normal diameter and appearance. Ascending aorta is normal in size. PULMONIC VALVE: Normal thickness and mobility. No stenosis. No regurgitation. PERICARDIUM: No evidence of pericardial effusion. IVC: Collapses with inspirations. IVC is normal in size. CONCLUSION: 1. Global left ventricular systolic function is hyperdynamic; visually estimated ejection fraction is 65 to 70% 2. Normal right ventricular size and systolic function 3. Normal diastolic function 4. The left atrium is normal in size 5. Mild to moderate tricuspid regurgitation Adult Echocardiography Procedure Report Left Ventricle LVEDD (3.7 - 5.6 cm): 3.27 cm LVESD (2.2 - 4.0 cm): 2.19 cm LVIVS thickness (0.6 - 1.2 cm): 1.27 cm LVPW thickness (0.5 - 1.0 cm): 0.94 cm e': 0.06 m/s E - e': 13.03 LVOT Max Gradient: 6.96 mm[Hg] LVOT Area (cm2): 1.32 m/s Peak Velocity (LVOT): 1.32 m/s Mean Velocity (LVOT): 0.90 m/s LVOT Diameter 1.86 cm Left Atrium LA Volume Index (2D A2C): 34.50 ml/m2 Left Atrium Systolic Dimension: 3.37 cm Mitral Valve MV E to A Ratio: 0.72 Mitral Valve A-Wave Peak Velocity: 1.11 m/s Mitral Valve E-Wave Peak Velocity: 0.80 m/s Right Ventricle Aorta AO Root Diam: 2.98 cm Ascending Ao Diam: 3.08 cm Aortic Valve AoV Area (Peak Joshua): 2.41 cm2, 2.41 cm2 AoV Area (VTI): 2.33 cm2, 2.33 cm2 Peak Velocity(Antegrade Flow): 1.49 m/s Peak Gradient(Antegrade Flow): 8.87 mm[Hg] Mean Velocity(Antegrade Flow): 1.04 m/s Mean Gradient(Antegrade Flow): 4.77 mm[Hg] Velocity Time Integral: 36.36 cm Tricuspid Valve Peak Velocity (Regurgitant Flow): 2.71 m/s Pulmonic Valve Mean Gradient: 2.39 mm[Hg], 1.90 mm[Hg] Mean Velocity: 0.72 m/s, 0.63 m/s Peak Gradient: 4.10 mm[Hg], 3.21 mm[Hg] Right Atrium Right Atrium Systolic Pressure: 41.41 ml, 41.41 ml Dictated by: Kristin Pittman M.D. on 02/14/2024 at 15:44 Approved by: Kristin Pittman M.D. on 02/14/2024 at 15:48
--- OUTSIDE RECORDS SUMMARY | 2024-02-11 08:02 | XMS_ITS ---
Patient Summarization (C-CDA 2.1 CCD) Created on: February 11, 2024 TRINY GASCA : 1935 Sex: Female Demographics Address [address] [place] [address] Preferred Language en Marital Status Single Amish Affiliation Unknown Race Unknown Ethnic Group Not or Lati no Author Organization Sample organization Care Team Providers Care Applications Engineering Manager Name Role Phone JOHNNY, DR ELVER Augustin Consulting Unavailable FABY, DR KULDIP Mcclellan Primary Care Unavailable SHAIKH HUBBARD Attending Unavailable SHAIKH HUBBARD Admitting Unavailable TATIANA, DR SRIKANTH Parada Consulting Unavailable NICKOLAS ANDERSEN, DR FANI Wilson Consulting Unavaillucas augustin BOONE, DR GUTIERREZ Consulting Unavailable ANNALISA RICHARDSON Consulting Unavailable ALEX FAY Consulting Unavailable SIMON VILLANUEVA Consulting Unavailable Angelica Sorenson Consulting Unavailable SHAIKH HUBBARD Consulting Unavailable FABY, DR KULDIP Mcclellan Consulting Unavailable NICKOLAS ANDERSEN, DR FANI Wilson Attending Unavaillucas SWEET, DR KULDIP Mcclellan Primary Care Unavailable NICKOLAS ANDERSEN, DR FANI Wilson Admitting Unavaillucas SIMPSON, DR SRIKANTH Parada Consulting Unavailable NICKOLAS ANDERSEN, DR FANI Wilson Consulting UnavailKuldip Schmitt DO Primary Care Provider [phone] DARREN PRESSLEY Attending Unavailable MONISHA JASMINE Attending Unavailable Allergies Allergy Classification Reported Allergen(s) Allergy Type Date of Onset Reaction(s) Facility Theophylline (1 source) Theophylline Drug Allergy 02-16-2014 [facility] (2 sources) HYLAN G-F 20 Drug [facility] (3 sources) Theophylline; Translations: [THEOPHYLLINE] Drug Allergy 09-09-2022 [facility] Encounters Encounter Date Encounter Type Care Provider Facility Start: 01-19-2024 ambulatory [facility] Start: 01-19-2024 Encounter for preprocedural cardiovascular examination [facility] Start: 12-06-2023 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 [facility] Comment on above: Moderate asthma with out complication, unspecified whether persistent Start: 12-02-2023 Refill Alyssa Violet [facility] Comment on above: Moderate asthma with out complication, unspecified whether persistent Start: 08-18-2023 End: 08-18-2023 ambulatory [facility] Start: 08-18-2023 End: 08-18-2023 Encounter for other preprocedural examination [facility] Start: 03-13-2021 End: 03-14-[address] KULDIP SWEET Facility:[facility] Start: 07-03-2020 End: 07-04-[address] ELVER TURNER Facility:[facility]1 Immunizations Immunization Date Immunization Notes Care Provider Fa anita 06-15-2023 Influenza Vaccine, Quadrivalent, Adjuvanted [facility] Medications Current Medications Medication Drug Class(es) Dates Sig (Normalized) Sig (Original) acetaminophen 325 mg oral capsule (2 sources) take 1 capsule by mouth every six hours as needed acetaminophen (TylenoL) 325 mg capsule 1 capsule as needed Orally every 6 hrs 0 Active [id number] 200 actuat albuterol 0.09 mg/actuat metered dose [...] needed Orally every 12 hrs 0 Active Payers Date Payer Category Payer Medicare MEDICARE MEDICAR E PART A & B [id number] 2002-Present [phone] [address] [place] [address] [id number] 1957 Medicare [id number] 1935 Unknown [id number] 1935 Unknown [id number] Plan of Treatment Date Care Activity Detail Author Start: 10-02-2026 DTaP,Tdap and Td Vaccines (2 - Td or Tdap) DTaP,Tdap and Td Vaccines (2 - Td or Tdap) [facility] (Chapter 11) [facility] Start: 08-03-2024 Adult [facility]ening [facility] Start: 08-03-2024 Depression Screening Depression Scre ening [facility] (Chapter 11) [facility] Start: 08-03-2024 Fall Risk Screening Fall Risk Screen ing [facility] (Chapter 11) [facility] Start: 08-03-2024 Tobacco Screening Tobacco Screening [facility] Start: 11-03-2023 Medicare Annual Wellness Visit Medicare Annual Wellness Visit [facility] Start: 05-14-2023 COVID-19 Vaccine () COVID-19 Vaccine () [facility] Problems Active Problems Problem Classification Problem Date [...] (primary) hypertension; Translations: [Essential hypertension] Onset: 07-12-2020 09-09-2022 Chronic Nutritional deficiencies (2 sources) Vitamin D [...] Chronic Other lower respiratory disease (2 sources) Shortness of breath; Translations: [Shortness of breath] Onset: 01-19-2024 Episodic Other screening for suspected conditions (not mental disorders or infectious disease) (2 sources) Abnormal electrocardiogram [ECG] [EKG]; Translations: [Abnormal electrocardiogram (ECG) (EKG)] Onset: 01-19-2024 Episodic Past or Other Problems Problem Classification [...] 09-09-2022 Episodic Other aftercare (1 source) Other retirement (current) drug therapy; Translations: [OTH LONG-TERM CURRENT DRUG THERAPY] Onset: 07-12-2020 Episodic Other lower respiratory disease (1 source) Hypoxemia; Translations: [HYPOXEMIA] Onset: 07-12-2020 Episodic Other lower respiratory disease (2 sources) Other forms of dyspnea; Translations: [Other forms of dyspnea] Onset: 08-18-2023 Episodic Residual codes; unclassified (2 sources) Noncompliance with treatment; Translations: [Noncompliance] Onset: 06-15-2023 06-15-2023 Episodic Screening and history of mental health and substance abuse codes (1 source) Personal history of nicotine dependence; Translations: [PERSONAL HISTORY OF NICOTINE DEPEND] Onset: 07-12-2020 Episodic Urinary tract infections (1 source) Pyonephrosis; Translations: [PYONEPHROSIS] Onset: 07-12-2020 Episodic Procedures Date Procedure Procedure Detail Performing Clinician Start: 08-03-2023 Adult depression scr eening assessment Alyssa 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 Start: 07-03-2020 Dilation of Right Ur eter with Intraluminal Device, Via Natural or Artificial Opening Endoscopic DR ELVER TURNER Start: 07-03-2020 Extirpation of Matte r from Right Ureter, Via Natural or Artificial Opening Endoscopic DR ELVER TURNER Start: 07-03-2020 Fluoroscopy of Right Kidney, Ureter and Bladder DR ELVER TURNER Results Test Name Value Interpretation Reference Range Facility Office Visiton 01-19-2024 Follow-up visit [id number] Triny Gasca 1935 F Date Provider Department Center 01/19/2024 MONISHA BRYANT EMMANUEL Cruz Family History Problem Relation Age of Onset Heart failure Mother Hypertension Daughter Diabetes Daughter Family Status - Relation Status Age at Mother Daughter Other Level of Service:63297 [place] OFFICE/OUTPATIENT ESTABLISHED MOD MDM 30 MIN Normal [facility] 37on 08-18-2023 37 *Monitor your blood pressure at home. Goal blood pressure is 120-130/80. *We will switch carvedilol to nebivolol. *Have your stress test done. Normal [facility] Office Visiton 08-18-2023 Follow-up visit [id number] Triny Gasca 1935 F Date Provider Department Center 08/18/2023 DARREN JONES EMMANUEL Cruz Family History Problem Relation Age of Onset Heart failure Mother Hypertension Daughter Diabetes Daughter Family Status - Relation Status Age at Mother Daughter Other Level of Service:19748 [place] OFFICE/OUTPATIENT NEW MODERATE MDM 45-59 MINUTES Reason for Visit and Comments: New Patient [632] Pre-op Exam [508077] Normal [facility] COMPREHENSIVE METABOLIC PANE Winston 03-07-2022 Albumin [Mass/Vol] 4.1 g/dL Normal 3.6-5.1 [facility] Comment on above: Performed By: #### 7 001, 05484, 75766 #### [facility] [address], [address] [place], [place] [id number] Gang Bore Operator: Tucker Lobato MD Albumin/Globulin [Mass ratio] 1.6 {ratio} Normal 1.0-2.5 [facility] Comment on above: Performed By: #### 7 600, 51436, 83974 #### [facility] [address], [address] [place] [phone] Gang Bore Operator: Tucker Lobato MD ALP [Catalytic activity/Vol] 73 U/L Normal 37-153 [facility] Comment on above: Performed By: #### 7 600, 04663, 03302 #### [facility] of [address], [address] [place] [address] Gang Bore Operator: Tucker Lobato MD ALT [Catalytic activity/Vol] 14 U/L Normal 6-29 [facility] Comment on above: Performed By: #### 7 600, 48253, 24979 #### [facility] of [address], [address] [place] [address] Gang Bore Operator: Tucker Lobato MD AST [Catalytic activity/Vol] 14 U/L Normal 10-35 [facility] Comment on above: Performed By: #### 7 600, 69802, 90128 #### [facility] of [address], [address] [place] [address] Gang Bore Operator: Tucker Lobato MD Bilirubin [Mass/Vol] 0.4 mg/dL Normal 0.2-1.2 [facility] Comment on above: Performed By: #### 7 600, 91804, 23001 #### [facility] of [address], [address] [place] [address] Gang Bore Operator: Tucker Lobato MD BUN/CREATININE RATIO NOT APPLICABLE Normal 6-22 [facility] Comment on above: Performed By: #### 7 600, 45251, 53766 #### [facility] of [address], [address] [place] [address] Gang Bore Operator: Tucker Lobato MD Calcium [Mass/Vol] 9.2 mg/dL Normal 8.6-10.4 [facility] Comment on above: Performed By: #### 7 600, 32067, 40148 #### [facility] of [address], [address] [place] [address] Gang Bore Operator: Tucker Lobato MD Chloride [Moles/Vol] 104 mmol/L Normal 98-110 [facility] Comment on above: Performed By: #### 7 600, 77037, 05889 #### [facility] of [address], [address] [place] [address] Gang Bore Operator: Tucker Lobato MD CO2 [Moles/Vol] 31 mmol/L Normal 20-32 [facility] Comment on above: Performed By: #### 7 600, 33666, 48937 #### [facility] [place] [address] Gang Bore Operator: Tucker Lobato MD Creatinine [Mass/Vol] 0.71 mg/dL Normal 0.60-0.88 [facility] Comment on above: Result Comment: For patients >49 years of age, the reference limit for Creatinine is approximately 13% higher for people identified as -Monegasque. Performed By: #### 7 600, 21391, 54491 #### [facility] [place] [address] Gang Bore Operator: Tucker Lobato MD eGFR NON-AFR. MALAYSIAN 78 mL/min/1.73m2 Normal > OR = 60 [facility] Comment on above: Performed By: #### 7 600, 50506, 00564 #### [facility] [place] [address] Gang Bore Operator: Tucker Lobato MD GFR/1.73 sq M.predicted among blacks MDRD (S/P/Bld) [Vol rate/Area] 91 mL/min/{1.73_m2} Normal > OR = 60 [facility] Comment on above: Performed By: #### 7 600, 18388, 00907 #### [facility] [place] [address] Gang Bore Operator: Tucker Lobato MD Globulin (S) [Mass/Vol] 2.6 g/dL Normal 1.9-3.7 [facility] Comment on above: Performed By: #### 7 600, 00046, 05438 #### [facility] [place] [address] Gang Bore Operator: Tucker Lobato MD Glucose [Mass/Vol] 105 mg/dL High 65-99 [facility] Comment on above: Result Comment: Fasting reference interval For someone without known diabetes, a glucose value between 100 and 125 mg/dL is consistent with prediabetes and should be confirmed with a follow-up test. Performed By: #### 7 600, 41320, 74863 #### [facility] [place] [address] Gang Bore Operator: Tucker Lobato MD Potassium [Moles/Vol] 4.4 mmol/L Normal 3.5-5.3 [facility] Comment on above: Performed By: #### 7 600, 88822, 33616 #### [facility] [place] [address] Gang Bore Operator: Tucker Lobato MD Protein [Mass/Vol] 6.7 g/dL Normal 6.1-8.1 [facility] Comment on above: Performed By: #### 7 600, 48557, 67327 #### [facility] [place] [address] Gang Bore Operator: Tucker Lobato MD Sodium [Moles/Vol] 141 mmol/L Normal 135-146 [facility] Comment on above: Performed By: #### 7 600, 91392, 11948 #### [facility] [place] [address] Gang Bore Operator: Tucker Lobato MD Urea nitrogen [Mass/Vol] 17 mg/dL Normal 7-25 [facility] Comment on above: Performed By: #### 7 600, 22943, 03539 #### [facility] [place] [address] Gang Bore Operator: Tucker Lobato MD LIPID PANEL, [facility] 02-12 Cholesterol [Mass/Vol] 181 mg/dL Normal <200 [facility] Comment on above: Order Comment: FASTI NG:YES FASTING: YES Performed By: #### 7 600, 25557, 13428 #### [facility] of [place] [address] Gang Bore Operator: Tucker Lobato MD Cholesterol in HDL [Mass/Vol] 46 mg/dL Low > OR = 50 [facility] Comment on above: Order Comment: FASTI NG:YES FASTING: YES Performed By: #### 7 600, 93454, 16765 #### [facility] [address], [address] [place] [address] Gang Bore Operator: Tucker Lobato MD Cholesterol in LDL [Mass/Vol] [...] equation in the estimation of LDL-C. Emil SS et al. PATTIE. 2013;310(19): 9535-1945 (http://education.Revenew/faq/XGN015) Performed By: #### 7 600, 94183, 39092 #### [facility] [address], [address] [place] [address] Gang Bore Operator: Tucker Lobato MD Cholesterol.total/Ch olesterol in HDL [Mass ratio] 3.9 {ratio} Normal <5.0 [facility] Comment on above: Order Comment: FASTI NG:YES FASTING: YES Performed By: #### 7 600, 69669, 84886 #### [facility] [address], [address] [place] [address] Gang Bore Operator: Tucker Lobato MD NON HDL CHOLESTEROL 135 mg/dL (calc) High <130 [facility] Comment on above: Order Comment: FASTI NG:YES FASTING: YES Result Comment: For patients with diabetes plus 1 major ASCVD risk factor, treating to a non-HDL-C goal of <100 mg/dL (LDL-C of <70 mg/dL) is considered a therapeutic option. Performed By: #### 7 600, 39852, 16697 #### [facility] [address], [address] [place] [address] Gang Bore Operator: Tucker Lobato MD Triglyceride [Mass/Vol] 186 mg/dL High <150 [facility] Comment on above: Order Comment: FASTI NG:YES FASTING: YES Performed By: #### 7 600, 00981, 02833 #### [facility] [address] [facility], [address] [place] [address] Gang Bore Operator: Tukcer Lobato MD VITAMIN D,25-OH,TOTAL,IAon 0 03-07-2022 VITAMIN [...] D, (D2,D3), LC/MS/MS is recommended: order code 13707 (patients >2yrs). See Note 1 Note 1 For additional information, please refer to http://education.Revenew/faq/UMR680 (This link is being provided for informational/ educational purposes only.) Performed By: #### 7 600, 69124, 49526 #### [facility] [place] [address] [facility], [address] [place] [address] Gang Bore Operator: Tucker Lobato MD [facility] - [facility] [id number] 38#1.00CD:127 Normal [facility] XR KUB 1 VIEWon 03-14-2021 XR KUB [...] by: SRIKANTH SIMPSON Date: 2021-03-14 08:49 Normal [facility] Consent for Procedure/Surger yon 08-13-2020 Consent for Procedure/Surgery [id number] 43#1.00CD:127 Normal [facility] Ambulatory Clinical Summaryo n 08-12-2020 Ambulatory Clinical Summary {[id number]}CD:[id number] Normal [facility] Patient Educationon 08-12-20 20 Patient Education Family [...] Document Reviewed: 06/27/2010 ExitCare? Patient Information ?2013 DDVTECH. Normal [facility] Urology Office/Clinic Noteon 08-12-2020 Urology Office/Clinic Note [...] Do MD, Fani Wilson In 6 months [id number] Additional Instructions: w/KUB Patient Education Kidney Stones, Wnry-bn-Wzxt Radha Mccoy, personally scribed for Dr. Olmos on 08/12/2020 13:56:00. . Documentation recorded by the Radha swan accurately reflects the services(s) I performed and [...] 50,000 intl units (1.25 mg) oral capsule, 71061 International_Unit= 1 cap(s), Oral, Daily Allergies theophylline [...] report revealed calcified none magnetic wire. Normal [facility] Comment on above: Result Comment: Elec tronically Signed By: Nickolas Do MD, Fani Wilson\.br\Date and Time Signed: 08/12/20 14:03 EST\.br\Electronically Co-Signed By: Radha Lang\.br\Date and Time Co-Signed: 08/12/20 13:56 EST Ambulatory Clinical Summaryo n 07-25-2020 Ambulatory Clinical Summary {[id number]}CD:[id number] Normal [facility] Patient Educationon 07-25-20 20 Patient Education Family [...] may irritate the prostate. ? Only take [id number] or prescription medicines for pain, discomfort, or [...] Document Reviewed: 04/18/2009 ExitCare? Patient Information ?2013 DDVTECH. Enedelia [facility] Urology Office/Clinic Noteon 07-25-2020 Urology Office/Clinic Note Chief Complaint Pt is here for [place] follow up This patient is an 85-year-old [...] Urnls Dip Stick Auto w/o Microscopy POC 95009 Urology Procedure Order 2. Foreign body in [...] day(s), # 2 tab(s), Refills(s) 0, Pharmacy: [facility], 150, cm, 07/25/20 11:16:00 EST, Height/Length Dosing, 49.3, kg, 07/25/20 1... I have reviewed the previous health record information and history for this patient from Dr. Olmos Follow-up With When Contact Information Nickolas Do MD, Fani Wilson [facility] [address] [place] [address]- Additional Instructions: Patient Education Hematuria, Adult I, Kathy Ktae, personally scribed for Dr. Olmos on 07/25/2020 11:46:24. . Documentation recorded by the scribe, Kathy Kate, accurately reflects the services(s) I performed and decisions made by me. Authenticated by Dr. Olmos on 07/25/2020 12:16:05. Problem Li (more content not included)... Normal [facility] Comment on above: Result Comment: Elec tronically Signed By: Nickolas Do MD, Fani Wilson\.br\Date and Time Signed: 07/25/20 12:16 EST\.br\Electronically Co-Signed By: Kathy Kate MA\.br\Date and Time Co-Signed: 07/25/20 11:47 EST Pathology Noteon 07-11-2020 Pathology Note [id number] DD#1.00CD:127 [facility] RAD - MISCon 07-11-2020 RAD - MISC [id number] 82#1.00CD:127 [facility] ECG 12-Leadon 07-08-2020 ECG 12-Lead [id number] 4C#1.00CD:127 [facility] RAD - CT Reporton 07-08-[address] RAD - CT Report [id number] 8C#1.00CD:127 [facility] RAD - MISCon 07-08-2020 RAD - MISC [id number] CC#1.00CD:127 Normal [facility] CBC AUTO DIFFon 07-04-2020 BASO # 0.0 103/ul Normal 0.0-0.1 [facility] Comment on above: Performed By: #### C BC #### [facility] [address] [place], [place] [address] Nadege Viviane Basophils/100 WBC (Bld) 0.1 % Critically low 0.2-2.0 [facility] Comment on above: Performed By: #### C BC #### [facility] [address] [place] [id number] Nadege Viviane EO # 0.0 103/ul Normal 0.0-0.7 [facility] Comment on above: Performed By: #### C BC #### [facility] [address] [place], [place] [phone] Nadege Viviane Eosinophils/100 WBC (Bld) 0.0 % Critically low 0.9-7.0 [facility] Comment on above: Performed By: #### C BC #### [facility] [address] [place] [phone] Nadege Viviane Erythrocyte distribution width (RBC) [Ratio] 14.2 % Normal 11.0-15.0 [facility] Comment on above: Performed By: #### C BC #### [facility] [address] [place], [place] [phone] Nadege Viviane Hematocrit (Bld) [Volume fraction] 34.1 % Critically low 36.0-48.0 [facility] Comment on above: Performed By: #### C BC #### [facility] [address] [place] [phone] Nadege Viviane Hemoglobin (Bld) [Mass/Vol] 10.7 g/dL Critically low 12.0-16.0 [facility] Comment on above: Result Comment: NIDIA ENT HAS IV IS BEING DISCHARGED PER NURSE Performed By: #### C BC #### [facility] [address] [place] [phone] Nadege Viviane IG # 0.15 10e3/ul Critically high 0.00-0.03 [facility] Comment on above: Performed By: #### C BC #### [facility] [address] [place] [phone] Nadege Viviane IG % 0.9 % Critically high 0.0-0.5 [facility] Comment on above: Performed By: #### C BC #### [facility] [address] [place] [phone] Nadege Viviane LYMPH # 1.7 103/ul Normal 1.2-3.8 [facility] Comment on above: Performed By: #### C BC #### [facility] [address] [place], [place] [phone] Nadegetomy Pan Lymphocytes/100 WBC (Bld) 9.9 % Critically low 20.5-60.0 [facility] Comment on above: Performed By: #### C BC #### [facility] [address] [place], [place] [phone] Nadegetomy Pan MANUAL DIFF REQ NO Normal [facility] Comment on above: Performed By: #### C BC #### [facility] [address] [place] [address] Nadegetomy Pan MCH (RBC) [Entitic mass] 29.0 pg Normal 26.7-34.0 [facility] Comment on above: Performed By: #### C BC #### [facility] [address] [place] [address] Nadegetomy Pan MCHC (RBC) [Mass/Vol] 31.4 g/dL Normal 29.9-35.2 [facility] Comment on above: Performed By: #### C BC #### [facility] [address] [place] [address] Nadegetomy Pan MCV (RBC) [Entitic vol] 92.4 fL Normal 81.0-99.0 [facility] Comment on above: Performed By: #### C BC #### [facility] [address] [place], [place] [phone] Nadege Viviane MONO # 0.9 103/ul Critically high 0.3-0.8 [facility] Comment on above: Performed By: #### C BC #### [facility] [address] [place] [address] Nadege Pan Monocytes/100 WBC (Bld) 5.3 % Normal 1.7-12.0 [facility] Comment on above: Performed By: #### C BC #### [facility] [address] [place] [phone] Nadege Pan NEUT # 14.2 103/ul Critically high 1.4-6.5 [facility] Comment on above: Performed By: #### C BC #### [facility] [address] [place] [phone] Nadege Pan Neutrophils/100 WBC (Bld) 83.8 % Critically high 43.0-75.0 [facility] Comment on above: Performed By: #### C BC #### [facility] [address] [place], [place] [phone] Nadege Pan Platelet mean volume (Bld) [Entitic vol] 9.2 fL Critically low 9.5-13.5 [facility] Comment on above: Performed By: #### C BC #### [facility] [address] [place] [address] Nadege Pan PLT 221 103/ul Normal 150-450 [facility] Comment on above: Performed By: #### C BC #### [facility] [address] [place], [place] [address] Nadege Pan RBC 3.69 106/ul Critically low 4.20-5.40 [facility] Comment on above: Performed By: #### C BC #### [facility] [address] [place], [place] [phone] Nadege Pan WBC 16.9 103/ul Critically high 4.0-11.[address] [facility] Comment on above: Performed By: #### C BC #### [facility] [address] [place], [place] [phone] Nadege Pan Operative Reporton 0 Operative Report [id number] 30#1.00CD:127 Normal [facility] PROF CHEM 8 (BAS METB)on Anion gap [Moles/Vol] 12.2 mmol/L Normal [facility] Comment on above: Performed By: #### B MP #### [facility] [address], [place] [address] Nadege Viviane Calcium [Mass/Vol] 8.4 mg/dL Normal 8.4-10.2 [facility] Comment on above: Performed By: #### B MP #### [facility] [address] [place] [phone] [place] Viviane Chloride [Moles/Vol] 106 mmol/L Normal 98-107 The [facility] Comment on above: Performed By: #### B MP #### [facility] [address] [place] [address] [place] Viviane CO2 [Moles/Vol] 27.7 mmol/L Normal 22.0-30.[address] [facility] Comment on above: Performed By: #### B MP #### [facility] [address] [address] [place] Viviane Creatinine [Mass/Vol] 0.91 mg/dL Normal 0.52-1.04 [facility] Comment on above: Performed By: #### B MP #### [facility] [address] [phone] [place]iane EGFR-AF MALAYSIAN >60 Normal >=[address] [facility] Comment on above: Performed By: #### B MP #### [facility] [address] [phone] [place] Viviane EGFR-NON AF MALAYSIAN 59 mL/min/1.73m2 Critically low >=60 The [facility] Comment on above: Performed By: #### B MP #### [facility] [address] [phone] [place]ge Viviane Glucose [Mass/Vol] 142 mg/dL Critically high 74-106 T [facility] Comment on above: Performed By: #### B MP #### [facility] [address] [phone] [place] Viviane Potassium [Moles/Vol] 3.9 mmol/L Normal 3.4-5.0 The [facility] Comment on above: Performed By: #### B MP #### [facility] [address], [place] [address] Nadegetomy Pan Sodium [Moles/Vol] 142 mmol/L Normal 137-145 [facility] Comment on above: Performed By: #### B MP #### [facility] [address], [place] [address] N[place]ge Viviane Urea nitrogen [Mass/Vol] 24.0 mg/dL Critically high 7.0-17.0 [facility] Comment on above: Performed By: #### B MP #### [facility] [address], [place] [address] Nadege Viviane Urea nitrogen/Creatinine [Mass ratio] 26.4 mg/mg Normal [facility] Comment on above: Performed By: #### B MP #### [facility] [address], [place] [address] ABD/PELVIS WO CONon 07-03 CT ABD/PELVIS [...] ANGELICA SORENSON Date: 2020-07-02 23:54 Normal The [facility] CULTURE BLOODon 07-03-2020 Microscopic examination of blood, culture Culture Observations: No growth at 5 days Normal The [facility] Comment on above: Performed By: #### B LDCX2 ####[facility] Yhoakyqvib2597 [address] [place]iane Performed By: #### B LDCX1 ####[facility] Anvqejwgym2590 [address] [place]iane CULTURE URINEon 07-03-2020 CULTURE URINE Culture Observations: Light growth of mixed genital aggie.No potential pathogens seen. Normal The [facility] Comment on above: Performed By: #### U RCX ####[facility] Lrtwigycgv2295 [address] Viviane ER URINE PROFILEon 0 Bilirubin Ql (U) Negative Normal NEGATIVE The [facility] Comment on above: Performed By: #### CRISTINA SALAMANCA ####[facility] Wcpbptfkua5592 [address] [place] Clarity (U) CLEAR Normal The [facility] Comment on above: Performed By: #### CRISTINA SALAMANCA ####[facility] [address] [place] [phone] Color (U) LT. YELLOW Normal YELLOW The [facility] Comment on above: Performed By: #### CRISTINA SALAMANCA ####[facility] Av[address] [place], [place] [phone] Viviane ERUAHD A micrscopic examination will be performed if indicated. Normal The [facility] Comment on above: Performed By: #### CRISTINA SALAMANCA ####[facility] Xev[address] [place], [place] [phone]iane Glucose Ql (U) Negative Normal NEGATIVE [facility] Comment on above: Performed By: #### CRISTINA SALAMANCA ####[facility] Xlnehrmpiy[address] [place], [place] [address] Hemoglobin Ql (U) SMALL Normal NEGATIVE [facility] Comment on above: Performed By: #### CRISTINA SALAMANCA ####[facility] Mbw[address]rmyys[address] [place], [place] [address] Ketones Ql (U) Negative Normal NEGATIVE [facility] Comment on above: Performed By: #### CRISTINA SALAMANCA ####[facility] Z[address]xx[address] [place], [place] [address] LEUKOCYTES TRACE Normal NEGATIVE [facility] Comment on above: Performed By: #### CRISTINA SALAMANCA ####[facility] Xw[address]to[address] [place], [place] [address] Nitrite Ql (U) Negative Normal NEGATIVE The [facility] Comment on above: Performed By: #### CRISTINA SALAMANCA ####[facility] Phwwvvbf[address] [place], [place] [address]iane pH (U) 8.5 [pH] Normal 5-9 The [facility] Comment on above: Performed By: #### CRISTINA SALAMANCA ####[facility] Ccs[address]qok[address] [place], [place] [address] Protein Ql (U) Negative Normal [facility] Comment on above: Performed By: #### SAMIR SALAMANCARO ####[facility] [address] [place] [phone] Pan SPEC GRAVITY 1.020 Normal 1.005-<=1.025 [facility] Comment on above: Performed By: #### E SAMIR MAGAÑARO ####[facility] [address] [place] [address]N[place]ge Pan UR MICRO IND INDICATED Normal [facility] Comment on above: Performed By: #### SAMIR SALAMANCARO ####[facility] [address] [place] [address]N[place]ge Pan Urobilinogen Qn (U) 0.2 {Cuong'U}/dL Normal The [facility] Comment on above: Performed By: #### SAMIR SALAMANCARO ####[facility] [address] [place] [address]N[place]ge Pan LACTATE/LACTIC ACIDon 2019 Lactate [Moles/Vol] 1.9 mmol/L Normal 0.7-2.0 [facility] Comment on above: Performed By: #### L ACT #### [facility] [address] [address] [place]ge Pan PTTon 07-03-2020 aPTT Coag (Bld) [Time] 22.5 s Normal 22.3-36.2 [facility] Comment on above: Performed By: #### P T, PTT #### [facility] [address] [address] [place]ge Pan PTT NORMAL PLEASE NOTE: NORMAL RANGE CHANGE 08-07-2015 DUE TO REAGENT LOT CHANGE Normal The [facility] Comment on above: Performed By: #### P T, PTT #### [facility] [address] [address] [place] Pan RESPIRATORY PANEL PLUSon Adenovirus Not detected Normal NOT DETECTED The [facility] Comment on above: Performed By: #### R SPLUS ####[facility] [address] [place] [address] B. Parapertusis Not detected Normal NOT DETECTED The [facility] Comment on above: Performed By: #### R SPLUS ####[facility] Nmagxggjtb4016 [address] [place] B. Pertussis Not detected Normal NOT DETECTED The [facility] Comment on above: Performed By: #### R SPLUS ####[facility] Ffmnrspcad8180 [address] [place] Chlamydia Pneumoniae Not detected Normal NOT DETECTED The [facility] Comment on above: Performed By: #### R SPLUS ####[facility] Rgrydzlcys6908 [address] [place] Coronavirus 229E Not detected Normal NOT DETECTED The [facility] Comment on above: Performed By: #### R SPLUS ####[facility] R[address] [place] [address] Viviane Coronavirus HKU1 Not detected Normal NOT DETECTED The [facility] Comment on above: Performed By: #### R SPLUS ####[facility] Hxggxefjhr6358 [address] [place] Coronavirus NL63 Not detected Normal NOT DETECTED The [facility] Comment on above: Performed By: #### R SPLUS ####[facility] Cxoikovyqv2325 [address] [place] Coronavirus OC43 Not detected Normal NOT DETECTED The [facility] Comment on above: Performed By: #### R SPLUS ####[facility] Csjyvtfjbb5795 [address] [place] Influenza A H1 2009 Not detected Normal NOT DETECTED T [facility] Comment on above: Performed By: #### R SPLUS ####[facility] Tmzbakbwqi4799 [address] [place] Influenza B Not detected Normal NOT DETECTED The [facility] Comment on above: Performed By: #### R SPLUS ####[facility] Ahcmulkdlw6557 [address] [place] Metapneumovirus Not detected Normal NOT DETECTED The [facility] Comment on above: Performed By: #### R SPLUS ####[facility] Aihiguiyrm7976 [address] [place] Mycoplas. Pneumoniae Not detected Normal NOT DETECTED The [facility] Comment on above: Performed By: #### R SPLUS ####[facility] Wuwljwdaej8306 [address] [place] Parainfluenza 1 Not detected Normal NOT DETECTED The [facility] Comment on above: Performed By: #### R SPLUS ####[facility] Yvsobnvcud8847 [address] [place] Parainfluenza 2 Not detected Normal NOT DETECTED The [facility] Comment on above: Performed By: #### R SPLUS ####[facility] Usjdwichkc9359 [address] [place] Parainfluenza 3 Not detected Normal NOT DETECTED The [facility] Comment on above: Performed By: #### R SPLUS ####[facility] [address] [place] [address] Viv[place] Parainfluenza 4 Not detected Normal NOT DETECTED The [facility] Comment on above: Performed By: #### R SPLUS ####[facility] [address] [place] [address] Viv[place] Rhino/Enterovirus Not detected Normal NOT DETECTED The [facility] Comment on above: Performed By: #### R SPLUS ####[facility] Segpwdoqft1585 [address] [place] RP2 Header 1 RESPIRATORY PANEL: VIRUSES Normal The [facility] Comment on above: Performed By: #### R SPLUS ####[facility] Zerwibawql6821 [address] [place] RP2 Header 2 RESPIRATORY PANEL: BACTERIA Normal The [facility] Comment on above: Performed By: #### R SPLUS ####[facility] So[address]xib[address] [place] [address] Viv[place] RP2 Header 4 EUA SEE BELOW Normal The [facility] Comment on above: Result Comment: This test is not yet approved or cleared by the [place] FDA. When there are no FDA-approved or cleared tests available, and other criteria are met, FDA can make tests available under an emergency access mechanism called an Emergency Use Authorization (EUA). The EUA for this test is supported by the Packing Room Supervisor of Health and Human Service?s (HHS?s) declaration [...] be used). Performed By: #### R SPLUS ####[facility] Hqal[address] [place] [address] [place] RSV Not detected Normal NOT DETECTED The [facility] Comment on above: Performed By: #### R SPLUS ####[facility] [address] [place] [address] SARS-CoV-2 (COVID-19) RNA ANGEL+probe Ql (Unsp spec) Not detected Normal NOT DETECTED The [facility] Comment on above: Performed By: #### R JOSE ####[facility] Jcjyguanch[address] [place] [address] Viviane URINE MICROSCOPIC ONLYon AMORPHOUS CRYSTALS MODERATE Normal The [facility] Comment on above: Performed By: #### CRISTINA SALAMANCA ####[facility] [address] [place] [address] [place] BACTERIA SMALL Normal NONE SEEN The [facility] Comment on above: Performed By: #### E CRISTINA MAGAÑA ####[facility] [address] [place] [address] Bacteria identified Cx Nom (U) INDICATED Normal The [facility] Comment on above: Performed By: #### E CRISTINA MAGAÑA ####[facility] Exdjxgmlca[address] [place] [address] [place] CAST NONE SEEN Normal NONE SEEN The [facility] Comment on above: Performed By: #### E ARCHANA UMICRO ####[facility] Iycsewokfe1527 [place], [place] [address]Labxwc Viviane Crystals LM Nom (Urine sed) SEEN Normal NONE SEEN The [facility] Comment on above: Performed By: #### CRISTINA SALAMANCA ####[facility] Lnfvpuntfx0720 [place], [place] [address]Ajsxim Viviane Epithelial cells LM Ql (Urine sed) FEW Normal The [facility] Comment on above: Performed By: #### CRISTINA SALAMANCA ####[facility] Zsujwwngls1292 [place], [place] [address]Vosrgr Viviane MUCOUS NONE SEEN Normal NONE SEEN The [facility] Comment on above: Performed By: #### CRISTINA SALAMANCA ####[facility] Zobcfxvzyu0080 [place], [place] [address]Qoxwmu Viviane RBC 10-20 Normal 0-2 The [facility] Comment on above: Performed By: #### CRISTINA SALAMANCA ####[facility] Rpbqskeays6768 [place], [place] [address]Gxxyna Viviane WBC 10-20 Normal NONE SEEN The [facility] Comment on above: Performed By: #### CRISTINA SALAMANCA ####[facility] Aiybltcamy8008 [place], [place] [address]Opqonj Viviane XR CHEST 1 Von 07-03-2020 XR [...] ALEX FAY Date: 2020-07-02 23:35 Normal The [facility] XR RETROGRADE PYELOGRAMon XR RETROGRADE PYELOGRAM [...] SRIKANTH SIMPSON Date: 2020-07-03 14:18 Normal The [facility] CBC AUTO DIFFon 07-02-2020 BASO # 0.1 103/ul Normal 0.0-0.1 The [facility] Comment on above: Performed By: #### C BC ####[facility] Izkiaarevu4567 [address] [place] Basophils/100 WBC (Bld) 0.3 % Normal 0.2-2.0 The [facility] Comment on above: Performed By: #### C BC ####[facility] Jsfqvcivzv[address] [place], [place] [address]iane EO # 0.2 103/ul Normal 0.0-0.7 The [facility] Comment on above: Performed By: #### C BC ####[facility] [address]kzrvu[address] [place], [place] [address]Ger[place] Eosinophils/100 WBC (Bld) 1.3 % Normal 0.9-7.0 The [facility] Comment on above: Performed By: #### C BC ####[facility] Bdb[address] [place] [address] [place] Erythrocyte distribution width (RBC) [Ratio] 13.3 % Normal 11.0-15.0 The [facility] Comment on above: Performed By: #### C BC ####[facility] Ejx[address]ulvks[address] [place] [id number] Hematocrit (Bld) [Volume fraction] 39.1 % Normal 36.0-48.0 The [facility] Comment on above: Performed By: #### C BC ####[facility] Lmdobinkms[address] [place], [place] [address]iane Hemoglobin (Bld) [Mass/Vol] 12.8 g/dL Normal 12.0-16.0 The [facility] Comment on above: Performed By: #### C BC ####[facility] Glpwnndwjt[address] [place] [address] [place] IG # 0.06 10e3/ul Critically high 0.00-0.03 [facility] Comment on above: Performed By: #### C BC ####[facility] Qbihopuvdz0225 [address] [place] IG % 0.4 % Normal 0.0-0.5 [facility] Comment on above: Performed By: #### C BC ####[facility] Aioijnsize[address] [place] [address] [place] LYMPH # 1.2 103/ul Normal 1.2-3.8 [facility] Comment on above: Performed By: #### C BC ####[facility] Javtvzqcbs[address] [place] [address] [place] Lymphocytes/100 WBC (Bld) 7.0 % Critically low 20.5-60.0 [facility] Comment on above: Performed By: #### C BC ####[facility] Dsvveqdlol[address] [place] [address] [place] MANUAL DIFF REQ NO Normal [facility] Comment on above: Performed By: #### C BC ####[facility] I[address]wvn[address] [place] [address] [place] MCH (RBC) [Entitic mass] 29.2 pg Normal 26.7-34.0 [facility] Comment on above: Performed By: #### C BC ####[facility] Wpywpiodfw[address] [place] [address] [place] MCHC (RBC) [Mass/Vol] 32.7 g/dL Normal 29.9-35.2 [facility] Comment on above: Performed By: #### C BC ####[facility] Upkajpzcaf[address] [place] [address] [place] MCV (RBC) [Entitic vol] 89.1 fL Normal 81.0-99.0 [facility] Comment on above: Performed By: #### C BC ####[facility] R[address]vif[address] [place] [address] [place] MONO # 1.1 103/ul Critically high 0.3-0.8 The [facility] Comment on above: Performed By: #### C BC ####[facility] Bvpvxsotns[address] [place] [id number] Monocytes/100 WBC (Bld) 6.5 % Normal 1.7-12.0 The [facility] Comment on above: Performed By: #### C BC ####[facility] Ijkbuoffcf[address] [place] [id number] NEUT # 14.0 103/ul Critically high 1.4-6.[address] [facility] Comment on above: Performed By: #### C BC ####[facility] [address]xry[address]ipa[address] [place] Neutrophils/100 WBC (Bld) 84.5 % Critically high 43.0-75.0 The [facility] Comment on above: Performed By: #### C BC ####[facility] Skivdvoepv6893 [address] [place] Platelet mean volume (Bld) [Entitic vol] 8.7 fL Critically low 9.5-13.5 The [facility] Comment on above: Performed By: #### C BC ####[facility] [address]cksscak[address] [place] [id number] PLT 257 103/ul Normal 150-450 The [facility] Comment on above: Performed By: #### C BC ####[facility] Prgemyjkoh7189 [place] [id number] RBC 4.39 106/ul Normal 4.20-5.40 The [facility] Comment on above: Performed By: #### C BC ####[facility] Etugzycmth[address] [place] [id number] WBC 16.5 103/ul Critically high 4.0-11.[address] [facility] Comment on above: Performed By: #### C BC ####[facility] Fbrcbtdfcm3328 [address] [place] LIPASEon 07-02-2020 Lipase [Catalytic activity/Vol] 238.0 U/L Normal 23.0-300.0 The [facility] Comment on above: Performed By: #### T ROP, CMP, LIPA #### [facility] [address] [address] Nadege Pan PROF 14(COMP METB)on 020 Albumin [Mass/Vol] 3.7 g/dL Normal 3.5-5.0 [facility] Comment on above: Performed By: #### T ROP, CMP, LIPA #### [facility] [address] [address] Nadegetomy Pan Albumin/Globulin [Mass ratio] 1.1 {ratio} Normal [facility] Comment on above: Performed By: #### T ROP, CMP, LIPA #### [facility] [address] [place] [address] Nadege [place]iane ALP [Catalytic activity/Vol] 62 U/L Normal 38-126 [facility] Comment on above: Performed By: #### T ROP, CMP, LIPA #### [facility] [address] [place] [address] Nadege [place]iane ALT [Catalytic activity/Vol] 27 U/L Normal 9-52 [facility] Comment on above: Performed By: #### T ROP, CMP, LIPA #### [facility] [address] [place] [address] Nadegetomy Pan Anion gap [Moles/Vol] 11.4 mmol/L Normal [facility] Comment on above: Performed By: #### T ROP, CMP, LIPA #### [facility] [address] [place] [address] N[place]ge [place]iane AST [Catalytic activity/Vol] 20 U/L Normal 14-36 The [facility] Comment on above: Performed By: #### T ROP, CMP, LIPA #### [facility] [address] [place] [address] Nadege [place]iane Bilirubin [Mass/Vol] 0.4 mg/dL Normal 0.2-1.3 The [facility] Comment on above: Performed By: #### T ROP, CMP, LIPA #### [facility] [address] [place] [address] Nadege Viviane Calcium [Mass/Vol] 9.2 mg/dL Normal 8.4-10.2 The [facility] Comment on above: Performed By: #### T ROP, CMP, LIPA #### [facility] [address] [address] N[place]ge [place] Chloride [Moles/Vol] 104 mmol/L Normal 98-107 The [facility] Comment on above: Performed By: #### T ROP, CMP, LIPA #### [facility] [address] [address] N[place]ge [place]iane CO2 [Moles/Vol] 29.2 mmol/L Normal 22.0-30.[address] [facility] Comment on above: Performed By: #### T ROP, CMP, LIPA #### [facility] [address] [place] [address] Nadege Viviane Creatinine [Mass/Vol] 0.90 mg/dL Normal 0.52-1.04 The [facility] Comment on above: Performed By: #### T ROP, CMP, LIPA #### [facility] [address] [place] [address] Nadege [place]iane EGFR-AF MALAYSIAN >60 Normal >=[address] [facility] Comment on above: Performed By: #### T ROP, CMP, LIPA #### [facility] [address] [place] [address] Nadege Viviane EGFR-NON AF MALAYSIAN =60 Normal >=60 The [facility] Comment on above: Performed By: #### T ROP, CMP, LIPA #### [facility] [address] [place] [address] Nadege Viviane Globulin (S) [Mass/Vol] 3.4 g/dL Normal The [facility] Comment on above: Performed By: #### T ROP, CMP, LIPA #### [facility] [address] [place] [address] Nadege Viviane Glucose [Mass/Vol] 119 mg/dL Critically high 74-106 [facility] Comment on above: Performed By: #### T ROP, CMP, LIPA #### [facility] [address] [address] Nadege Viviane Potassium [Moles/Vol] 3.6 mmol/L Normal 3.4-5.0 The [facility] Comment on above: Performed By: #### T ROP CMP, LIPA #### [facility] [address] [address] N[place]ge [place]iane Protein [Mass/Vol] 7.1 g/dL Normal 6.1-8.2 The [facility] Comment on above: Performed By: #### T ROP, CMP, LIPA #### [facility] [address] [address] N[place]ge [place]iane Sodium [Moles/Vol] 141 mmol/L Normal 137-145 [facility] Comment on above: Performed By: #### T ROP, CMP, LIPA #### [facility] [address] [place] [address] Nadege Viviane Urea nitrogen [Mass/Vol] 18.0 mg/dL Critically high 7.0-17.0 [facility] Comment on above: Performed By: #### T ROP, CMP, LIPA #### [facility] [address] [place] [address] Nadege Viviane Urea nitrogen/Creatinine [Mass ratio] 20.0 mg/mg Normal [facility] Comment on above: Performed By: #### T ROP, CMP, LIPA #### [facility] [address] [place] [address] Nadege Pan PROTIMEon 07-02-2020 INR Coag (PPP) [Relative time] 0.93 {INR} Normal [facility] Comment on above: Performed By: #### P T, PTT #### [facility] [address] [place] [address] Nadege Viviane INR GUIDELINES SEE BELOW Normal [facility] Comment on above: Result Comment: MILAN RED INR: 2.0 - 3.0 CONDITIONS NOT LISTED BELOW 2.5 - 3.5 FOR PROSTHETIC HEART VALVE REPLACEMENT 2.5 - 3.5 RECURRENT THROMBOSIS Performed By: #### P T, PTT #### [facility] [address] [place] [address] Nadege Viviane PT Coag (PPP) [Time] 9.9 s Normal 9.0-11.6 [facility] Comment on above: Performed By: #### P T, PTT #### [facility] [address] [id number] Nadege Pan PT NORMAL PLEASE NOTE: NORMAL RANGE CHANGE 05-31-2014 DUE TO REAGENT LOT CHANGE Normal [facility] Comment on above: Performed By: #### P T, PTT #### [facility] [address] [address] Nadege Pan TROPONIN - Ion 07-02-2020 TROP <0.012 Normal <=0.034 [facility] Comment on above: Performed By: #### T ROP, CMP, LIPA #### [facility] [address] [place] [address] Nadege Pan TROPONIN RANGE SEE BELOW Normal [facility] Comment on above: Result Comment: <0.0 34 ng/ml NEGATIVE 0.034-0.119 INDETERMINATE 0.120 AMI CUT OFF Performed By: #### T ROP, CMP, LIPA #### [facility] [address] [place], [place] [id number] Nadege Pan Dipstick and Microscopicon 0 01-25-2019 Appearance Nom (U) Cloudy Critically abnormal Clear [facility] Comment on above: Order Comment: CALL [phone] Name Collection Type:: Collection Method Unknown Performed By: #### A DDONUAPLUS, CUU #### [facility] [address] [place] [address] [place] Bacteria LM.HPF #/area (Urine sed) None Seen Normal None Seen [facility] Comment on above: Order Comment: CALL [phone] Name Collection Type:: Collection Method Unknown Performed By: #### A DDONUAPLUS, CUU #### [facility] [address] [place] [address] [place] Bilirubin,Urine Negative Normal Negative [facility] Comment on above: Order Comment: CALL [phone] Name Collection Type:: Collection Method Unknown Performed By: #### A DDONUAPLUS, CUU #### [address] [place] [address] [place] Color Nom (U) Yellow Normal Yellow [facility] Comment on above: Order Comment: CALL [phone] Name Collection Type:: Collection Method Unknown Performed By: #### A DDONUAPLUS, CUU #### [facility] [address] [place], [place] [id number] [place] Glucose Ql (U) Normal Normal Normal [facility] Comment on above: Order Comment: CALL [phone] Name Collection Type:: Collection Method Unknown Performed By: #### A DDONUAPLUS, CUU #### [facility] [address] [place], [place] [id number] [place] Hyaline Casts,Urine None Seen Normal 0-1 [facility] Comment on above: Order Comment: CALL [phone] Name Collection Type:: Collection Method Unknown Performed By: #### A DDONUAPLUS, CUU #### [facility] [address] [place], [place] [id number] [place] Ketones Ql (U) Negative Normal Negative [facility] Comment on above: Order Comment: CALL [phone] Name Collection Type:: Collection Method Unknown Performed By: #### A DDONUAPLUS, CUU #### [facility] [address] [place], [place] [id number] [place] Leukocyte esterase Test strip Ql (U) 3+ High Negative [facility] Comment on above: Order Comment: CALL [phone] Name Collection Type:: Collection Method Unknown Performed By: #### A DDONUAPLUS, CUU #### [facility] [address] [place], [place] [id number] [place] Nitrite,Urine Negative Normal Negative [facility] Comment on above: Order Comment: CALL [phone] Name Collection Type:: Collection Method Unknown Performed By: #### A DDONUAPLUS, CUU #### [facility] [address] [place], [place] [id number] [place] Occult Blood,Urine 3+ High Negative [facility] Comment on above: Order Comment: CALL [phone] Name Collection Type:: Collection Method Unknown Result Comment: PERF ORMED BY: [place] [address] PATHOLOGIST GAMBRELER HELPER JAMARCUS CARMICHAEL M.D. Performed By: #### A DDONUAPLUS, CUU #### [address] Other Casts,Urine None Seen Normal None Seen [facility] Comment on above: Order Comment: CALL [phone] Name Collection Type:: Collection Method Unknown Result Comment: PERF ORMED BY: [place] [address] PATHOLOGIST GAMBRELER HELPER JAMARCUS CARMICHAEL M.D. Performed By: #### A KIANNAUAPLUS, CUU #### [address] pH (U) 6.0 [pH] Normal 5.0-9.0 [facility] Comment on above: Order Comment: CALL [phone] Name Collection Type:: Collection Method Unknown Performed By: #### A DDONUAPLUS, CUU #### [address] Protein mass conc (U) 100 mg/dL High Negative [facility] Comment on above: Order Comment: CALL [phone] Name Collection Type:: Collection Method Unknown Performed By: #### A DDONUAPLUS, CUU #### [address] RBC LM.HPF #/area (Urine sed) Innumerable High 0-4 [facility] Comment on above: Order Comment: CALL [phone] Name Collection Type:: Collection Method Unknown Performed By: #### A DDONUAPLUS, CUU #### [address] Renal Epithelial Cells,Urine None Seen Normal 0-1 [facility] Comment on above: Order Comment: CALL [phone] Name Collection Type:: Collection Method Unknown Performed By: #### A DDONUAPLUS, CUU #### [address] [place],Urine 1.018 Normal 1.001-1.030 [facility] Comment on above: Order Comment: CALL [phone] Name Collection Type:: Collection Method Unknown Performed By: #### A DDONUAPLUS, CUU #### [facility] [address] [place] [address] Squamous Epithelial Cell,Urine 20-30 High 0-2 [facility] Comment on above: Order Comment: CALL [phone] Name Collection Type:: Collection Method Unknown Performed By: #### A DDONUAPLUS, CUU #### [address] Urobilinogen,Urine Normal Normal Normal [facility] Comment on above: Order Comment: CALL [phone] Name Collection Type:: Collection Method Unknown Performed By: #### A DDONUAPLUS, CUU #### [address] WBC LM.HPF #/area (Urine sed) 20-49 High 0-4 [facility] Comment on above: Order Comment: CALL [phone] Name Collection Type:: Collection Method Unknown Performed By: #### A DDONUAPLUS, CUU #### [address] Urine Cultureon 01-25-2019 Bacteria identified Cx Nom (U) No Growth 2 Days PERFORMED BY: [place] [address] PATHOLOGIST GAMBRELER HELPER JAMARCUS CARMICHAEL M.D. [facility] Comment on above: Performed By: #### A DDONUAPLUS, CUU #### [facility] [address] [place] [address] Social History Date Type Detail Facility Start: 08-03-2023 Alcohol intake Ex-drinker (finding) [facility] Start: 06-15-2023 End: 08-03-2023 Social connection and isolation panel [facility] Start: 09-09-2022 Tobacco smoking stat [facility] Ex-smoker [facility] Start: 09-09-2022 End: 06-15-2023 Cigarettes smoked current (pack per day) - Reported 2 [facility] Start: 09-09-2022 Tobacco use and exposure Smoke less tobacco non-user [facility] Start: 1935 Sex Assigned At Not on file P Moser [facility] History of tobacco use [facility] History of tobacco use Cigarette Smoker P Moser [employer] [facility] Do you belong to any clubs or organizations such as worship groups, unions, fraternal or athletic groups, or school groups? No [facility] Are you now , , , , never or living with a partner? [facility] How often to you hav e a drink containing alcohol? Never [facility] How many standard dr inks containing alcohol do you have on a typical day? Patient does not drink [facility] Do you feel stress - tense, restless, nervous, or anxious, or unable to sleep at night because your mind is troubled all the time - these days [OSQ] To some extent [facility] Progress note 01-19-2024 Note Date & Type Note Facility 01-19-2024 Note [place] [facility] Subjective Triny Gasca is a 88 y.o. year old female patient being seen for follow up stress test. Mara Pressley CNP switched her from carvedilol to Bystolic at last apt in Aug 2023. Denies chest pain and palpitations. Says her TONG is worsening. Patient Active Problem List Diagnosis B12 deficiency Chronic osteoarthritis Essential hypertension Mixed hyperlipidemia Moderate asthma without complication Noncompliance Osteoporosis, postmenopausal Vitamin D insufficiency Family History Problem Relation Name Age of Onset Heart failure Mother Hypertension Daughter Diabetes Daughter Social History Tobacco Use Smoking status: Former Types: Cigarettes Quit date: 1997 Years since quittin.3 Smokeless tobacco: Never Substance Use Topics Alcohol use: Not Currently HPI She is seen in follow-up. She is an 88-year-old woman who was previously seen in our office as a new patient for risk stratification prior to [employer] surgery. She has dyspnea on exertion and stress test was performed. This showed no ischemia. Her ECG shows baseline ST and T wave abnormalities that could be related to ventricular hypertrophy versus ischemia. She has been having significant shortness of breath on exertion, NYHA class III symptoms. She has mild lower extremity edema. She has had hypertension for a while. Her blood pressure is elevated. Review of Systems Cardiovascular: Positive for dyspnea on exertion (worsening) and leg swelling. Neurological: Positive for light-headedness. All other systems reviewed and are negative. Objective Visit Vitals BP 150/70 (BP Location: Right arm, Patient Position: Sitting) Pulse 69 Ht 1.499 m (4' 11 ) Wt 48.1 kg (106 lb) SpO2 99% BMI 21.41 kg/m??? Smoking Status Former BSA 1.42 m??? Physical Exam Constitutional: Appearance: She is well-developed. She is not ill-appearing. HENT: Head: Normocephalic and atraumatic. Nose: Nose normal. Eyes: General: No scleral icterus. Pupils: Pupils are equal, round, and reactive to light. Neck: Thyroid: No thyromegaly. Vascular: No JVD. Cardiovascular: Rate and Rhythm: Normal rate and regular rhythm. Pulses: Radial pulses are 2+ on the right side and 2+ on the left side. Heart sounds: Normal heart sounds. No murmur heard. No friction rub. No gallop. Pulmonary: Effort: Pulmonary effort is normal. No respiratory distress. Breath sounds: Normal breath sounds. No wheezing or rales. Chest: Chest wall: No tenderness. Abdominal: General: Bowel sounds are normal. There is no distension. Palpations: Abdomen is soft. Tenderness: There is no abdominal tenderness. Musculoskeletal: General: No swelling. Cervical back: Neck supple. Right lower le+ Pitting Edema present. Left lower le+ Pitting Edema present. Skin: General: Skin is warm and dry. Neurological: General: No focal deficit present. Mental Status: She is alert and oriented to person, place, and time. Psychiatric: Mood and Affect: Mood normal. Behavior: Behavior is cooperative. Judgment: Judgment normal. Allergies Allergies Allergen Reactions Theophylline Palpitations Other reaction(s): Unknown Other Reaction(s): Tachycardia, Unknown Other reaction(s): Unknown Medications Current Outpatient Medications: albuterol 90 mcg/actuation inhaler, inhale 2 puffs by mouth every 4 hours if needed, Disp: , Rfl: moexipril (Univasc) 15 mg tablet, Take 15 mg by mouth in the morning., Disp: , Rfl: montelukast (Singulair) 10 mg tablet, Take 1 tablet by mouth in the morning., Disp: , Rfl: nebivolol (Bystolic) 5 mg tablet, take 1 tablet by mouth every morning, Disp: 90 tablet, Rfl: 3 amLODIPine (Norvasc) 5 mg tablet, Take 1 tablet (5 mg) by mouth in the morning., Disp: 90 tablet, Rfl: 3 Recent Labs Blood testing 07/12/2023: Hemoglobin 12.1, platelets 248, potassium 4.1, BUN 20, creatinine 0.7, EGFR more than 60, LFTs normal. Imaging and other tests Stress test 01/17/2024: Normal nuclear medicine perfusion scan. Ejection fraction 93%. No ECG changes seen on Lexiscan Cardiolite stress test in a patient with abnormal resting ECG. Resting ECG showed sinus rhythm with inferolateral ST-T wave changes potentially related to left ventricular hypertrophy and repolarization versus ischemia. ECG 08/03/2023: Sinus rhythm, nonspecific ST and T wave abnormalities. Assessment/Plan Diagnoses and all orders for this visit: Preop cardiovascular exam - Transthoracic echo (TTE) complete; Future Primary hypertension - amLODIPine (Norvasc) 5 mg tablet; Take 1 tablet (5 mg) by mouth in the morning. Shortness of breath - Transthoracic echo (TTE) complete; Future Abnormal EKG - Transthoracic echo (TTE) complete; Future Her blood pressure is not controlled. I will add amlodipine 5 mg once daily. She has baseline EKG abnormalities that could be related to longstand (more content not included)... [facility] Note 12-06-2023 Telephone Encounter - Kuldip Sweet DO - 12/06/2023 4:26 PM EDT Note Date & Type Note Facility 12-06-2023 Miscellaneous Notes Formattin g of this note might be different from the original. Rx sent in. Please set up appointment documented in this encounter [facility] Telephone encounter Note 12-06-2023 Telephone Encounter - Kuldip Sweet DO - 12/06/2023 4:26 PM EDT Note Date & Type Note Facility 12-06-2023 Telephone encount er Note Rx sent in. Please set up appointment [facility] Note 12-02-2023 Telephone Encounter - Kuldip Sweet DO - 12/02/2023 9:18 AM EDT Note Date & Type Note Facility 12-02-2023 Miscellaneous Notes Formattin g of this note might be different from the original. Rx sent in. She is due for recheck appt documented in this encounter [facility] Telephone encounter Note 12-02-2023 Telephone Encounter - Kuldip Sweet DO - 12/02/2023 9:18 AM EDT Note Date & Type Note Facility 12-02-2023 Telephone encount er Note Rx sent in. She is due for [facility]heck appt [facility] Progress note 08-18-2023 Note Date & Type [...] All other systems reviewed and are negative. [facility] Progress note 08-18-2023 Note Date & Type Note Facility 08-18-2023 Note Cardiovascular Medic ine [facility] SUBJECTIVE Chief Complaint Patient presents with New Patient Pre-op Exam HPI Triny Gasca is a 88 y.o. female here [...] for her TONG and METS <4. Called [facility], they have not received an order, [...] file. Darren Pressley NP [facility] Evaluation note Note Date & Type [...] section and content) DATE CREATED AUTHOR 02/04/2019 [facility] DATE CREATED AUTHOR AUTHOR'S ORGANIZ ATION 03/22/2021 [facility] DATE CREATED AUTHOR AUTHOR'S ORGANIZ ATION 05/30/2021 [facility] DATE CREATED AUTHOR AUTHOR'S ORGANIZ ATION 03/07/2022 [facility] DATE CREATED AUTHOR AUTHOR'S ORGANIZ ATION 01/24/2024 [facility] Reason for Visit (unrecogniz ed section and content) Reason Onset Date Comments Med Refill 12/02/2023 Reason Onset Date Comments Med Refill 12/06/2023 Care Teams (unrecognized sec tion and content) Applications Engineering Manager Relationship Specialty Start Date End Date Kuldip Sweet DO [address] [facility] [address] PCP - General Family Medicine 05/11/18 FOR [...] BE BASED ON THE PRIMARY CLINICAL RECORDS. [facility] [employer] [facility]. provides no warranty or guarantee of the accuracy or completeness of information in this document.
== END 2024-02-11 07:55 | disposition home or self-care (01) ==
LOC: CARD 07:55
PROVIDERS: Family Provider Family Medicine; PCP Family Medicine; Visit Provider Internal Medicine Interventional Cardiology
DX: R06.02 Shortness of breath (principal); R94.31 Abnormal electrocardiogram [ECG] [EKG]; Z01.810 Encounter for preprocedural cardiovascular examination
CPT/HCPCS: 93306